=== PATIENT | female | born 1990 | race Caucasian/White ===

== ENCOUNTER 2016-12-08 13:58 | Emergency (ER) | payer OTHER ==
[2016-12-08] MEDS ORDERED: IBUPROFEN 800 MG TABLET PO STA (14:34)
[2016-12-08] MEDS ORDERED: IBUPROFEN 800 MG TABLET PO ONE (14:39)
== END 2016-12-08 14:45 | disposition home or self-care (01) ==
DX: S16.9XXA Unspecified injury of muscle, fascia and tendon at neck level, initial encounter (principal); S29.002A Unspecified injury of muscle and tendon of back wall of thorax, initial encounter; V43.52XA Car driver injured in collision with other type car in traffic accident, initial encounter; Y92.488 Other paved roadways as the place of occurrence of the external cause
CPT/HCPCS: 99283; A9270

== ENCOUNTER 2017-03-18 10:24 | Outpatient (CLI) | payer OTHER | END 2017-03-18 10:25 | disposition home or self-care (01) | DX: L73.2 Hidradenitis suppurativa (principal) ==

== ENCOUNTER 2017-03-24 18:47 | Outpatient (CLI) | payer OTHER ==
--- NOTE | 2017-03-25 11:30 | Ultrasound Report ---
PELVIC ULTRASOUND: 03/24/2017 CLINICAL INDICATION: Pain. TECHNIQUE: Transabdominal pelvic ultrasound performed for global evaluation. Transvaginal pelvic ul trasound performed for detailed evaluation. Real-time scanning performed and static images obtained. FINDINGS: The uterus is anteverted, measuring 5.8 x 3.6 x 2.3 cm. The endometrial echo complex elijah ures 7 mm. No focal myometrial lesion is seen. The right ovary measures 2.9 x 2.8 x 3.1 cm, and rajan ears unremarkable. The left ovary measures 3.0 x 3.3 x 2.9 cm, and demonstrates a follicle. No free fluid is present. IMPRESSION: NORMAL PELVIC ULTRASOUND. JOB #: [id number] EXT JOB #:[id number]
== END 2017-03-24 18:48 | disposition home or self-care (01) ==
LOC: DI 18:47
PROVIDERS: ATTEND Family Medicine
DX: R10.2 Pelvic and perineal pain (principal)
CPT/HCPCS: 76830; 76856

== ENCOUNTER 2017-08-18 14:47 | Outpatient (CLI) | payer OTHER | END 2017-08-18 14:48 | disposition home or self-care (01) | LOC: LAB.WCP 14:47 | PROVIDERS: ATTEND Physician Assistant Medical | DX: Z33.1 Pregnant state, incidental (principal) | CPT/HCPCS: 36415; 84702 ==

== ENCOUNTER 2017-08-25 08:00 | Outpatient (CLI) | payer OTHER | END 2017-08-25 08:01 | LOC: LAB.R 08:00 | PROVIDERS: ATTEND Physician Assistant Medical | DX: B97.89 Other viral agents as the cause of diseases classified elsewhere (principal) | CPT/HCPCS: 87275; 87276 ==

== ENCOUNTER 2017-08-30 20:26 | Outpatient (CLI) | payer OTHER | END 2017-08-30 20:27 | disposition home or self-care (01) | LOC: LAB.WCP 20:26 | PROVIDERS: ATTEND Physician Assistant Medical | DX: O46.91 Antepartum hemorrhage, unspecified, first trimester (principal); Z32.01 Encounter for pregnancy test, result positive | CPT/HCPCS: 36415; 84702 ==

== ENCOUNTER 2017-09-01 11:38 | Outpatient (CLI) | payer OTHER | END 2017-09-01 11:39 | disposition home or self-care (01) | LOC: LAB.WCP 11:38 | PROVIDERS: ATTEND Physician Assistant Medical | DX: Z32.01 Encounter for pregnancy test, result positive (principal); O46.91 Antepartum hemorrhage, unspecified, first trimester | CPT/HCPCS: 36415; 84702; 84703 ==

== ENCOUNTER 2017-09-03 11:30 | Outpatient (CLI) | payer OTHER | END 2017-09-03 11:31 | disposition home or self-care (01) | LOC: LAB 11:30 | PROVIDERS: ATTEND Family Medicine | DX: O46.91 Antepartum hemorrhage, unspecified, first trimester (principal) | CPT/HCPCS: 36415; 84702 ==

== ENCOUNTER 2017-09-05 20:00 | Outpatient (CLI) | payer OTHER ==
--- NOTE | 2017-09-05 21:55 | Ultrasound Preliminary Report ---
Exam: US OB TRANSVAGINAL IMPRESSION: 1. Single viable intrauterine at EGA 6 weeks 3 days with SUHAS 04/28/2018 based on crown-rump length, which is mildly discordant with clinical dates. 2. Assigned dating is SUHAS 04/28/2018 based on current crown-rump length. RADIA The call report notification system was initiated by Dr. Kashmir Bahena at 21:28 hrs on 09/05/17. The above findings were discussed with Dr. Deluna by Dr. Kashmir Bahena at 21:53 hrs on 09/05/17. SITE ID: [id number]
--- NOTE | 2017-09-05 21:57 | Ultrasound Report ---
EXAM: FIRST TRIMESTER OBSTETRIC ULTRASOUND (Less than 11 weeks) EXAM DATE: 09/05/2017 08:15 PM. CLINICAL HISTORY: VAGINAL BLEEDING, FIRST TRIMESTER. LMP: 07/09/2017. COMPARISONS: None. TECHNIQUE: Transabdominal and transvaginal ultrasound examination with static image documentation. CLINICAL DATES: EGA 8 weeks 2 days with SUHAS 04/15/2018 based on LMP. ASSESSMENT: Gestational Sac: Single intrauterine. Mean gestational sac diameter: 33 mm = 8 weeks 3 days. Embryo: CRL (crown-rump length) 4.7 mm = 6 weeks 3 days. Cardiac activity: 124 beats per minute. Yolk sac: 3.2 mm. Amniotic fluid: Not accurately assessed at this gestational age. Early placenta: Not visible at this gestational age. Other: Small perigestational fluid collection with maximum measurement of 11 mm. MATERNAL STRUCTURES: Uterus: Anteverted/Retroverted. Unremarkable. Cervix: Closed. Right Ovary/Adnexa: Unremarkable. The ovary measures 2.3 x 2.0 x 2.9 cm, volume 6.9 cc. Left Ovary/Adnexa: Unremarkable. The ovary measures 2.5 x 1.7 x 1.5 cm, volume 3.4 cc. Free Fluid: Small amount of simple free fluid in the cul-de-sac, a nonspecific finding. Other: None. IMPRESSION: 1. Single viable intrauterine at EGA 6 weeks 3 days with SUHAS 04/28/2018 based on crown-rump length, which is mildly discordant with clinical dates. 2. Assigned dating is SUHAS 04/28/2018 based on current crown-rump length. HAOA The call report notification system was initiated by Dr. Kashmir Bahena at 21:28 hrs on 09/05/17. The above findings were discussed with Dr. Deluna by Dr. Kashmir Bahena at 21:53 hrs on 09/05/17. Referring Provider Line: [phone] SITE ID: [id number]
== END 2017-09-05 20:01 | disposition home or self-care (01) ==
LOC: DI 20:00
PROVIDERS: ATTEND Family Medicine
DX: O46.91 Antepartum hemorrhage, unspecified, first trimester (principal)
CPT/HCPCS: 76817

== ENCOUNTER 2017-09-26 08:00 | Outpatient (CLI) | payer OTHER | END 2017-09-26 08:01 | disposition home or self-care (01) | LOC: LAB.R 08:00 | PROVIDERS: ATTEND Registered Nurse | DX: Z34.81 Encounter for supervision of other normal pregnancy, first trimester (principal) | CPT/HCPCS: 87491; 87591 ==

== ENCOUNTER 2017-09-26 10:30 | Outpatient (CLI) | payer OTHER ==
[2017-09-26 11:13] LABS: BASOPHILS # (AUTO) 0.1 10^3/uL (0.0-0.1); BASOPHILS % (AUTO) 1.2 %; EOSINOPHILS # (AUTO) 0.6 10^3/uL (0.0-0.7); HGB - HEMOGLOBIN 14.4 g/dL (12.0-16.0); LYMPHOCYTES # (AUTO) 1.3 10^3/uL (1.5-3.5); MEAN CORPUSCULAR HGB CONC 35.1 g/dL (32.0-36.0); MEAN CORPUSCULAR VOLUME 88.3 fL (81.0-99.0); MEAN PLATELET VOLUME 7.8 fL (7.9-10.8); MONOCYTES # (AUTO) 0.4 10^3/uL (0.0-1.0); MONOCYTES % (AUTO) 6.6 %; NEUTROPHILS # (AUTO) 4.1 10^3/uL (1.5-6.6); NEUTROPHILS % (AUTO) 63.2 %; RED BLOOD COUNT 4.65 10^6/uL (4.20-5.40); RED CELL DISTRIBUTION WIDTH 13.2 % (12.0-15.0); UNCORRECTED WHITE BLOOD COUNT 6.5 x10^3/uL; WHITE BLOOD COUNT 6.5 x10^3/uL (4.8-10.8)
[2017-09-26 11:32] LABS: BILIRUBIN,URINE NEGATIVE (NEGATIVE); PH,URINE 5.5 PH (5.0-7.5)
[2017-09-26 11:40] LABS: WBC,URINE 0-3 /HPF (0-5)
[2017-09-28 17:06] LABS: TEST RESULT REPORT
== END 2017-09-26 10:31 | disposition home or self-care (01) ==
LOC: LAB 10:30
PROVIDERS: ATTEND Registered Nurse
DX: Z34.81 Encounter for supervision of other normal pregnancy, first trimester (principal)
CPT/HCPCS: 36415; 81001; 81599; 85025; 86762; 86780; 86803; 86850; 86900; 86901; 87340; 87389; 87491; 87591

== ENCOUNTER 2017-12-27 07:48 | Outpatient (CLI) | payer OTHER ==
--- NOTE | 2017-12-29 08:46 | Ultrasound Report ---
OB ULTRASOUND: 12/27/2017 CLINICAL INDICATIONS: anatomy. TECHNIQUE: Real-time scanning was performed with veterans service representative static images obtained. LAST MENSTRUAL PERIOD 07/09/2017 CLINICAL AGE 22 weeks 4 days US AGE 24 weeks 0 days EFW HADLOCK 634 grams EFW% HADLOCK -- HEART RATE 148 bpm EDC 04/28/2018 US EDC 04/18/2018 BPD HADLOCK 23 weeks 6 days; Mean mm 58 HC HADLOCK 24 weeks 4 days; Mean mm 226 AC HADLOCK 23 weeks 4 days; Mean mm 188 FL HADLOCK 24 weeks 0 days; Mean mm 43 PRESENTATION cephalic PLACENTAL LOCATION anterior CERVICAL LENGTH 4.0 cm AMNIOTIC FLUID subjectively normal; MVP 5.1 cm FINDINGS There is a single viable intrauterine gestation, in cephalic presentation. heart rate is 148 BPM. The placenta is anterior, without evidence of previa. Amniotic fluid volume is subjectively normal, with a deepest pocket of 5.1 cm. By size, the fetus measures 24 weeks 0 days (22 weeks 4 days by initial sonogram). The following anatomic structures were visualized and appear normal: The intracranial contents, including the ventricles and posterior fossa; the lips and orbits; the spine; the heart, including 4 chamber view and outflow tracts, and diaphragm; the abdominal contents, including the stomach, the bilateral kidneys, and urinary bladder, as well as a normal 3 vessel cord insertion; 4 limbs. Incidental note is made of mild left renal pelviectasis, measuring 3 mm. No free fluid or adnexal lesion is appreciated. IMPRESSION: SINGLE VIABLE INTRAUTERINE GESTATION, WITH EXPECTED GROWTH FROM PREVIOUS SONOGRAM. MILD LEFT RENAL PELVIECTASIS. OTHERWISE, NORMAL ANATOMIC SURVEY. TD: 12/27/2017 17:26 MTDD
== END 2017-12-27 07:49 | disposition home or self-care (01) ==
LOC: DI 07:48
PROVIDERS: ATTEND Registered Nurse
DX: Z34.82 Encounter for supervision of other normal pregnancy, second trimester (principal)
CPT/HCPCS: 76811

== ENCOUNTER 2018-02-10 10:38 | Outpatient (CLI) | payer OTHER ==
[2018-02-10 11:50] LABS: HGB - HEMOGLOBIN 13.6 g/dL (12.0-16.0); MEAN CORPUSCULAR HGB CONC 35.5 g/dL (32.0-36.0); MEAN PLATELET VOLUME 7.3 fL (7.9-10.8); RED BLOOD COUNT 4.25 10^6/uL (4.20-5.40); RED CELL DISTRIBUTION WIDTH 12.3 % (12.0-15.0); WHITE BLOOD COUNT 8.2 x10^3/uL (4.8-10.8)
== END 2018-02-10 10:39 | disposition home or self-care (01) ==
LOC: LAB 10:38
PROVIDERS: ATTEND Registered Nurse
DX: Z34.82 Encounter for supervision of other normal pregnancy, second trimester (principal)
CPT/HCPCS: 36415; 82950; 86850

== ENCOUNTER 2018-03-27 08:00 | Outpatient (CLI) | payer OTHER | END 2018-03-27 23:59 | LOC: LAB.R 08:00 | PROVIDERS: ATTEND Nurse Practitioner Obstetrics & Gynecology | DX: Z36.85 Encounter for antenatal screening for Streptococcus B (principal) | CPT/HCPCS: 87081 ==

== ENCOUNTER 2018-03-28 20:41 | Outpatient (CLI) | payer OTHER ==
--- NOTE | 2018-03-31 15:45 | Ultrasound Report ---
OB FOLLOWUP: 03/28/2018 CLINICAL INDICATION: Size/date discrepancy. TECHNIQUE: Real-time scanning was performed with players club representative static images obtained. LAST MENSTRUAL PERIOD: 07/22/2017 Clinical Age: 35 weeks 5 days US Age: 35 weeks 3 days EFW Hadlock: 2547 g EFW% Hadlock: 29% Heart Rate: 140 bpm EDC: 04/28/2018 US EDC: 04/30/2018 BPD Hadlock: 37 weeks 6 days; Mean mm 93.2 HC Hadlock: 34 weeks 4 days; Mean mm 309.2 AC Hadlock: 34 weeks 5 days; Mean mm 307.2 FL Hadlock: 34 weeks 3 days; Mean mm 67.0 Presentation: cephalic Placental Location: anterior Cervical Length: --- Amniotic Fluid: 18.4 cm FINDINGS: There is a single viable intrauterine gestation, in cephalic presentation. heart rate is 140 BPM. The placenta is anterior, without evidence of previa. Amniotic fluid volume is normal, with an MEGHNA of 18.4. By size, the fetus measures 35 weeks 2 days (35 weeks 5 days by first trimester dating ultrasound of 09/05/2017). Estimated weight by Hadlock method is 2547 grams, 29th percentile. No free fluid or adnexal lesion is appreciated. IMPRESSION: SINGLE VIABLE INTRAUTERINE GESTATION, WITH EXPECTED GROWTH FROM FIRST TRIMESTER DATING ULTRASOUND. ESTIMATED WEIGHT OF 2547 GRAMS. MTDD
== END 2018-03-28 20:42 | disposition home or self-care (01) ==
LOC: DI 20:41
PROVIDERS: ATTEND Registered Nurse
DX: O26.843 Uterine size-date discrepancy, third trimester (principal); Z36.85 Encounter for antenatal screening for Streptococcus B
CPT/HCPCS: 76816; 87081

== ENCOUNTER 2018-04-07 10:45 | Outpatient (CLI) | payer OTHER ==
[2018-04-07 10:57] LABS: BASOPHILS # (AUTO) 0.1 10^3/uL (0.0-0.1); EOSINOPHILS # (AUTO) 0.2 10^3/uL (0.0-0.7); HGB - HEMOGLOBIN 13.6 g/dL (12.0-16.0); LYMPHOCYTES # (AUTO) 1.3 10^3/uL (1.5-3.5); LYMPHOCYTES % (AUTO) 16.8 %; MEAN CORPUSCULAR HEMOGLOBIN 30.4 pg (27.0-31.0); MEAN CORPUSCULAR HGB CONC 34.8 g/dL (32.0-36.0); MEAN CORPUSCULAR VOLUME 87.5 fL (81.0-99.0); MEAN PLATELET VOLUME 7.1 fL (7.9-10.8); MONOCYTES # (AUTO) 0.6 10^3/uL (0.0-1.0); MONOCYTES % (AUTO) 7.6 %; NEUTROPHILS # (AUTO) 5.4 10^3/uL (1.5-6.6); NEUTROPHILS % (AUTO) 71.6 %; PLT - PLATELET COUNT 259 10^3/uL (130-450); RED BLOOD COUNT 4.45 10^6/uL (4.20-5.40); RED CELL DISTRIBUTION WIDTH 12.2 % (12.0-15.0); WHITE BLOOD COUNT 7.5 x10^3/uL (4.8-10.8)
[2018-04-07 11:11] LABS: ALBUMIN 3.3 g/dL (3.2-5.5); ALBUMIN/GLOBULIN RATIO 0.8 (1.0-2.2); BILIRUBIN,TOTAL 0.5 mg/dL (0.2-1.0); CALCIUM 9.2 mg/dL (8.5-10.3); CREATININE 0.5 mg/dL (0.4-1.0); TOTAL PROTEIN 7.2 g/dL (6.7-8.2); URIC ACID 4.5 mg/dL (2.6-7.2)
[2018-04-07 12:00] LABS: CREATININE,URINE 219.2 mg/dL; PROTEIN/CREATININE RATIO,URINE 0.1 (<=0.2)
== END 2018-04-07 10:46 | disposition home or self-care (01) ==
LOC: LAB 10:45
PROVIDERS: ATTEND Nurse Practitioner Obstetrics & Gynecology
DX: Z36.9 Encounter for antenatal screening, unspecified (principal)
CPT/HCPCS: 36415; 80053; 82570; 84156; 84550; 85025

== ENCOUNTER 2018-04-07 11:01 | Outpatient (CLI) | payer OTHER ==
[2018-04-07 11:53] VITALS: BP 120/78
== END 2018-04-07 11:55 | disposition home or self-care (01) ==
LOC: WFO 11:01 → FBP 11:02 → WFO 11:55
PROVIDERS: ATTEND Nurse Practitioner Obstetrics & Gynecology
DX: O13.3 Gestational [pregnancy-induced] hypertension without significant proteinuria, third trimester (principal); Z3A.37 37 weeks gestation of pregnancy; Z36.9 Encounter for antenatal screening, unspecified
CPT/HCPCS: 36415; 59025; 80053; 82570; 84156; 84550; 85025; 85027

== ENCOUNTER 2018-04-09 10:52 | Outpatient (CLI) | payer OTHER ==
[2018-04-09 11:19] LABS: COLLECTION TIME,URINE 1440 min; TOTAL VOLUME,URINE 900 mL
[2018-04-09 11:20] LABS: CREATININE,URINE 117.9 mg/dL
[2018-04-09 11:31] VITALS: BP 122/88
--- NOTE | 2018-04-10 14:29 | Labor Flowsheet ---
Labor Flowsheet Datetime Report Generated by CPN: 04/10/2018 14:28 Datetime: 04/09/2018 15:35 Pulse: 87 SpO2 (%): 97 Datetime: 04/09/2018 13:32 VITAL SIGNS NBP Sys/Kassidy/Mean (mmHg): 114 : 79 : 90
== END 2018-04-09 11:33 | disposition home or self-care (01) ==
LOC: LAB 10:52 → FBP 10:58 → LAB 11:33
PROVIDERS: ATTEND Registered Nurse
DX: Z36.9 Encounter for antenatal screening, unspecified (principal); O13.3 Gestational [pregnancy-induced] hypertension without significant proteinuria, third trimester; Z3A.37 37 weeks gestation of pregnancy
CPT/HCPCS: 82575

== ENCOUNTER 2018-04-28 14:05 | Outpatient (CLI) | payer OTHER | END 2018-04-28 14:06 | disposition home or self-care (01) | LOC: LAB.R 14:05 | PROVIDERS: ATTEND Nurse Practitioner Obstetrics & Gynecology | DX: R82.99 Other abnormal findings in urine (principal) | CPT/HCPCS: 87086 ==

== ENCOUNTER 2018-04-28 14:07 | Outpatient (CLI) | payer OTHER ==
[2018-04-28 14:18] VITALS: BP 129/91
== END 2018-04-28 17:50 | disposition home or self-care (01) ==
LOC: WFO 14:07 → FBP 14:08 → WFO 17:50
PROVIDERS: ATTEND Nurse Practitioner Obstetrics & Gynecology
DX: O36.8330 Maternal care for abnormalities of the fetal heart rate or rhythm, third trimester, not applicable or unspecified (principal); O23.43 Unspecified infection of urinary tract in pregnancy, third trimester; Z3A.39 39 weeks gestation of pregnancy
CPT/HCPCS: 59025; 87086

== ENCOUNTER 2018-05-01 21:31 | Inpatient (IN) | payer OTHER ==
[2018-05-01] MEDS ORDERED: SODIUM CHLORIDE FLUSH 0.9% 10 ML SYRINGE IVP PRN (22:27)
[2018-05-01 23:42] LABS: BASOPHILS # (AUTO) 0.1 10^3/uL (0.0-0.1); BASOPHILS % (AUTO) 0.7 %; EOSINOPHILS # (AUTO) 0.2 10^3/uL (0.0-0.7); EOSINOPHILS % (AUTO) 2.2 %; LYMPHOCYTES # (AUTO) 1.5 10^3/uL (1.5-3.5); MEAN CORPUSCULAR HEMOGLOBIN 30.2 pg (27.0-31.0); MEAN CORPUSCULAR HGB CONC 34.1 g/dL (32.0-36.0); MEAN CORPUSCULAR VOLUME 88.7 fL (81.0-99.0); MEAN PLATELET VOLUME 8.5 fL (7.9-10.8); MONOCYTES # (AUTO) 0.5 10^3/uL (0.0-1.0); MONOCYTES % (AUTO) 7.3 %; NEUTROPHILS # (AUTO) 5.1 10^3/uL (1.5-6.6); NEUTROPHILS % (AUTO) 69.8 %; PLT - PLATELET COUNT 200 10^3/uL (130-450); RED BLOOD COUNT 3.98 10^6/uL (4.20-5.40); RED CELL DISTRIBUTION WIDTH 12.6 % (12.0-15.0); WHITE BLOOD COUNT 7.3 x10^3/uL (4.8-10.8)
[2018-05-02] MEDS ORDERED: fentaNYL 100 MCG/2 ML VIAL IVP PRN (00:18)
[2018-05-02] MEDS ORDERED: ONDANSETRON 4 MG/2 ML VIAL IVP PRN ×2 (00:18→18:35)
[2018-05-02] MEDS ORDERED: OXYTOCIN/SODIUM CHLORIDE 250 ML IV ONE ×2 (00:19→18:35)
--- NOTE | 2018-05-02 00:23 | HISTORY & PHYSICAL EXAMINATION ---
Admit History - Instructions [place]necock/Slash: -Left hand click circles element as positive or present. -Right hand click slashes element as negative or not present. - Visit Reason Visit Reason: Contractions (x5 hours, strong) - : 1 Parity: 0 Premature: 0 Ectopic: 0 : 0 Care: positive: [facility] (initiated @ 9weeks' gestation x12 visits) Risk/History: positive: None Complications This : positive: None Smoking Status: Never smoker - Mother's Labs Mother's Blood Type: positive: A Mother's RH: positive: Negative (rhogam given 02/24/2018) GBS: positive: Group B Step Negative Rubella Status: positive: Equivocal Meds/Allgy - Home Medications Home Medications: Ambulatory Orders Medication Instructions Recorded Confirmed Hycosamine 1 tab PO DAILY 12/08/16 Ibuprofen [Motrin] 800 mg PO Q8H PRN #30 tablet 12/08/16 Omeprazole 10 mg PO DAILY 12/08/16 12/08/16 - Allergies Allergies/Adverse Reactions: Allergies Allergy/AdvReac Type Severity Reaction Status Date / Time bupropion HCl * Allergy Unknown Verified 12/08/16 14:11 [From Wellbutrin] Review of Systems - Constitutional Constitutional: reports: Fatigue. denies: Fever, Chills - Eyes Eyes: denies: Blurred vision, Spots in vision, Vision loss, Dipolpia - Cardiovascular Cariovascular: reports: Edema (mild b/l feet). denies: Irregular heart rate, Palpitations, Chest pain - Respiratory Respiratory: reports: SOB with exertion. denies: Cough, Sputum production, Wheezing, SOB at rest - Gastrointestinal Gastrointestinal: reports: Abdominal pain (contractions). denies: Constipation , Diarrhea, Change in bowel habits - Genitourinary Genitourinary: reports: Frequency, Urgency. denies: Dysuria - Musculoskeletal Musculoskeletal: reports: Back pain. denies: Muscle pain - Integumentary Integumentary: denies: Rash, Pruritis, Lesions - Neurological Neurological: denies: General weakness, Focal weakness, Headache, Dizziness - Psychiatric Psychiatric: reports: Anxiety (stable on sertraline 100mg po). denies: Depression, Suicidal - All Other Systems All Other Systems: reports: Other (+progressively painful uterine contractions, no LOF/VB, +FM) Physical - Abdominal Exam Vital Signs: Temp Pulse Resp BP Pulse Ox 36.7 C 92 18 123/87 H 99 05/01/18 21:48 05/01/18 21:48 05/01/18 21:48 05/01/18 21:48 05/01/18 21:48 Contraction Frequency (min/apart): 4-5 Contraction Intensity: positive: Mild to moderate Uterine Resting Tone: positive: Soft - Monitoring Heart Rate Baseline: 150 Strip Review: positive: Category I - Presentation Presentation: positive: Vertex - Vaginal Exam Membranes: positive: Membranes intact Dilation (in cm): 4 Effacement (%): 90 Station: positive: 0 Cervical Position: positive: Anterior - Speculum Exam Speculum Exam Performed: positive: No Findings: negative: Gross leak - Other Notes Labor Progress Note/Additional Text: Roger presents w/ complaint of 5 hours of progressively intense uterine contractions at home, requesting evaluation & complaining of too much pain to rest at home. If she is not actively laboring, she requests therapeutic rest followed by IOL for term . Her has been complicated by Rh negative status, for which she received Rhogam @ 28 weeks' gestation, anxiety, which has been stable on 100mg po sertraline & UTI, which was recently tx'ed w/ macrobid. She is accompanied today by Edgar & her aunt, who are involved & supportive. 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; to Edgar, denies DV, hx MJ use, denies other drugs, ETOH/tobacco; expecting male , naming him Yefri, declines circ, undecided re: anesthesia PE: GEN: AAOX3, NAD [place] GRAVID FEMALE HEENT: GROSSLY NORMOCEPHALIC, ATRAUMATIC RESP: LUNGS B/L CTA T/O CARDIAC: RRR NLS1S2, NO MURMUR GI: ABD NT, GRAVID, MILD PALPABLE CONTRACTIONS, ERRATIC, LIE LONGITUDINAL , PRESENTATION CEPHALIC, EFW 8.5-9# : NO LESION, NO EXUDATE, SVE 4/90/0 2 HOURS S/P ASSESSMENT BY RN, BBOW, SOFT , MIDPOSITION OB: EFM BL 145BPM, +ACCELS, NO DECELS, MOD DOYLE; TOCO: IRREG UCS Q 5-6 MIN X60 SECONDS MS: FROM T/O, NO DEFORMITY, MILD B/L PEDAL EDEMA SKIN: WARM, WELL-PERFUSED, C/D/I, NO LESION NEURO: NO FOCAL DEFICIT PSYCH: ANXIOUS BUT OTHERWISE PLEASANTLY CONVERSANT Plan for Labor - Plan For Labor I expect patient to be DC'd or transferred within 96 hours.: Yes Plan for Labor: 1. ADMIT TO INPATIENT FOR MANAGEMENT OF PRODROMAL LABOR W/ UTERINE CONTRACTIONS & MINIMAL CERVICAL CHANGE X5 DAYS 2. REVIEWED OPTIONS FOR MANAGEMENT @ THIS TIME; PT ELECTS HYDROXYZINE 50MG IM X1 FOR ATTEMPT @ REST OVERNIGHT & RE-ASSESSMENT IN AM W/ IOL FOR PROTRACTED LATENT PHASE LABOR 3. REVIEWED PAIN MANAGEMENT OPTIONS 4. PLAN PITOCIN IN AM IF NO FURTHER CERVICAL CHANGE
[2018-05-02] MEDS ORDERED: SERTRALINE 50 MG TABLET PO SCH ×3 (01:00→23:00)
[2018-05-02] MEDS: SODIUM CHLORIDE FLUSH 0.9% 10 ML SYRINGE IVP SCH ×2 (04:23→09:00)
[2018-05-02] MEDS: LACTATED RINGERS 1,000 ML IV SCH ×4 (05:15→20:04)
[2018-05-02] MEDS ORDERED: fent/BUPIV 2 MCG/0.125% 250 ML EP ONE (06:15)
[2018-05-02] MEDS ORDERED: cephALEXin 250 MG CAPSULE PO SCH (09:00)
--- NOTE | 2018-05-02 09:21 | PROVIDER PROGRESS NOTE ---
Labor Progress Note - Uterine Monitoring Uterine Monitoring Mode: positive: IUPC (placed to assess contraction activity relative to fluctuations in FHTs) Contraction Intensity: positive: Other (baseline 20mmHg, peak 60mmHg, contractions occurring q 5 min, MVU presently 120) Uterine Resting Tone: positive: Soft - Monitoring Monitor Mode: positive: External ultrasound Heart Rate Baseline: 140 Heart Rate Variability: positive: Moderate (6-25 bmp) Accelerations: positive: Present, 15x15 Decelerations: positive: Variable (to meredith in 110s w/ spontaneous return to baseline <60 seconds) Strip Review: positive: Category II - Vaginal Exam Dilation (in cm): 6 Effacement (%): 100 Station: 0 (apparent SROM @ some time, no ongoing LOF, but hair easily palpable) Cervical Position: Anterior - Labor Progress Note Labor Progress Note/Additional Text: S: Roger is comfortable w/ her epidural in place. She has been able to rest some & is hoping to rest some more O: AAOx3, NAD WA female VSS EFM: BL 140bpm, + accels, occ, non-repetitive variable decelerations to meredith in 100s w/ spontaneous return to baseline <60 seconds, moderate variability IUPC placed w/ ease to assess character of FHT decelerations relative to uterine contractions secondary to difficulty tracing w/ TOCO; baseline 20mmHg, peak 60mmHg, UCs occurring erratically q 5-6 minutes, lasting 60-80 seconds, MVU presently 120 SVE: 6/90/0 A: 28 y/o @ 40w2d by early first trimester US GBS negative, SROM for CAF Slow cervical change, now actively laboring w/ dysfunctional labor pattern, long prodromal latent phase Adequate pain control w/ epidural anesthesia FHTs cat II w/o evidence of hypoxemia P: 1. Begin Pitocin infusion & titrate per protocol to maintain adequate contractions by IUPC 2. Reassess cervical status x2 hours s/p establishment of adequate contraction pattern per MVU 3. Reviewed dysfunctional labor & anticipatory guidance for transition/2nd stage labor 4. Encouraged maternal rest 5. Reviewed plan of care w/ pt, pt's aunt & RN @ bedside; all in agreement, without concerns.
[2018-05-02] MEDS ORDERED: OXYTOCIN/SODIUM CHLORIDE 500 ML IV SCH (10:00)
--- NOTE | 2018-05-02 15:44 | PROVIDER PROGRESS NOTE ---
Subjective - Prog Note Date Prog Note Date: 05/02/18 Prog Note Time: 10:45 - Subjective Pt reports feeling: No change Objective - Vital Signs/Intake & Output Intake & Output: Intake & Output 04/29/18 04/30/18 05/01/18 05/02/18 23:59 23:59 23:59 23:59 Intake Total 2495 Output Total 800 Balance 1695 - Lab Results Fish Bones: 05/01/18 23:08 Other Labs: Lab Results x24hrs 05/01/18 Range/Units 23:08 WBC 7.3 (4.8-10.8) x10^3/uL RBC 3.98 L (4.20-5.40) 10^6/uL Hgb 12.0 (12.0-16.0) g/dL Hct 35.3 L (37.0-47.0) % MCV 88.7 (81.0-99.0) fL MCH 30.2 (27.0-31.0) pg MCHC 34.1 (32.0-36.0) g/dL RDW 12.6 (12.0-15.0) % Plt Count 200 (130-450) 10^3/uL MPV 8.5 (7.9-10.8) fL Neut # (Auto) 5.1 (1.5-6.6) 10^3/uL Lymph # (Auto) 1.5 (1.5-3.5) 10^3/uL Teller # (Auto) 0.5 (0.0-1.0) 10^3/uL Eos # (Auto) 0.2 (0.0-0.7) 10^3/uL Baso # (Auto) 0.1 (0.0-0.1) 10^3/uL Absolute Nucleated RBC 0.01 x10^3/uL Nucleated RBC % 0.1 /100WBC Assessment/Plan - Problem List (1) Active labor at term Impression: Labor Progress Note - Uterine Monitoring Uterine Monitoring Mode: positive: IUPC Contraction Frequency (min/apart): 3-5 minutes baseline 20mmHg, peak 70mmHg, MVU 100 Contraction Intensity: positive: Moderate to strong Uterine Resting Tone: positive: Soft - Monitoring Monitor Mode: positive: External ultrasound, Spiral electrode (FSE placed w/o incident) Heart Rate Baseline: 140 Heart Rate Variability: positive: Moderate (6-25 bmp) Accelerations: positive: Present, 15x15 Decelerations: positive: Early (discernible once FSE placed), Prolonged (> 2x10 min) (prolonged deceleration x1 to meredith in 80s w/ return to baseline w/ maternal position change to H&K, FSE placed w/o incident to ensure accuracy of FHR tracing) Strip Review: positive: Category II - Vaginal Exam Dilation (in cm): 7-8 Effacement (%): 100 Station: 0 Cervical Position: Anterior - Labor Progress Note Labor Progress Note/Additional Text: Called to see patient secondary to prolonged deceleration x1 to meredith in 80s w/ return to baseline over a period of 4.5 minutes w/ maternal position change from R lateral to L lateral & finally to H&K, IV fluid bolus infusing, O2 administered via non-rebreather face mask. FHTs 130bpm upon my arrival, FSE applied w/ ease & pt assisted in remaining in H&K positioning, SVE 8/100/0, despite inadequate contraction pattern per MVU, Pitocin infused only momentarily @ 2mU/min, discontinued w/ deceleration. Will continue to carefully observe FHTs & initiate intrauterine resuscitative measures as clinically indicated, resume Pitocin infusion & titrate per IUPC to achieve & maintain adequate labor pattern once FHTs cat I x30 minutes consistently. Reviewed implications of prolonged deceleration at this stage in labor & reviewed increased risk for intolerance of labor. Reviewed plan of care w / pt, pt's family & RN @ bedside; all in agreement, without concerns.
[2018-05-02] MEDS ORDERED: TERBUTALINE 1 MG/ML VIAL SUBQ ONE (16:05)
[2018-05-02] MEDS ORDERED: TERBUTALINE 1 MG/ML VIAL SUBQ SCH (16:10)
[2018-05-02] MEDS ORDERED: CITRIC ACID/SODIUM CITRATE 15 ML UDC PO ONE (16:21)
[2018-05-02] MEDS ORDERED: CITRIC ACID/SODIUM CITRATE 15 ML UDC PO SCH (16:27)
[2018-05-02] MEDS ORDERED: fentaNYL 100 MCG/2 ML VIAL ONE (16:28)
[2018-05-02] MEDS ORDERED: AZITHROMYCIN INJ 500 MG in SODIUM CHLORIDE 0.9% 250 ML IV SCH (16:30)
--- NOTE | 2018-05-02 16:33 | PROVIDER PROGRESS NOTE ---
Subjective - Prog Note Date Prog Note Date: 05/02/18 Prog Note Time: 16:27 - Subjective Subjective: FINANCIAL SALES CONSULTANT TANDEM MILL OPERATOR: 28 yo 40 2/7 weeks in labor with Category 2 tracing during long stretches of time, non-augmentable labor for same. Cx exam by me 7/C/-2/VTX. IV terbutaline/02/position changes required to treat prolonged decel while I was in room with patient recommending . Patient agrees with recommendation. Counseling/Consent form signed. Patient counseled about common surgical risks (Incisional & Uterine infection, bleeding and transfusion, injury to bowel/bladder/baby, need for additional surgery, DVT/PE, brain damage/ , or PA). OR crew, ANS and peds notified. All questions answered. Objective - Vital Signs/Intake & Output Intake & Output: Intake & Output 04/29/18 04/30/18 05/01/18 05/02/18 23:59 23:59 23:59 23:59 Intake Total 2495 Output Total 975 Balance 1520 - Lab Results Fish Bones: 05/01/18 23:08 Other Labs: Lab Results x24hrs 05/01/18 Range/Units 23:08 WBC 7.3 (4.8-10.8) x10^3/uL RBC 3.98 L (4.20-5.40) 10^6/uL Hgb 12.0 (12.0-16.0) g/dL Hct 35.3 L (37.0-47.0) % MCV 88.7 (81.0-99.0) fL MCH 30.2 (27.0-31.0) pg MCHC 34.1 (32.0-36.0) g/dL RDW 12.6 (12.0-15.0) % Plt Count 200 (130-450) 10^3/uL MPV 8.5 (7.9-10.8) fL Neut # (Auto) 5.1 (1.5-6.6) 10^3/uL Lymph # (Auto) 1.5 (1.5-3.5) 10^3/uL [place] # (Auto) 0.5 (0.0-1.0) 10^3/uL Eos # (Auto) 0.2 (0.0-0.7) 10^3/uL Baso # (Auto) 0.1 (0.0-0.1) 10^3/uL Absolute Nucleated RBC 0.01 x10^3/uL Nucleated RBC % 0.1 /100WBC
[2018-05-02] MEDS ORDERED: LACTATED RINGERS 1,000 ML IV ONE ×3 (16:38→18:43)
[2018-05-02] MEDS ORDERED: ONDANSETRON 4 MG/2 ML VIAL IVP ONE (18:24)
[2018-05-02] MEDS ORDERED: BUPIVACAINE 0.5% PF 10 ML VIAL IM ONE (18:24)
[2018-05-02] MEDS ORDERED: LIDOCAINE-PF 2% 10 ML AMP SUBQ ONE (18:24)
[2018-05-02] MEDS ORDERED: KETAMINE 500 MG/10 ML VIAL IVP ONE (18:24)
[2018-05-02] MEDS ORDERED: PROPOFOL 200 MG/20 ML VIAL IVP ONE (18:24)
[2018-05-02] MEDS ORDERED: KETOROLAC 30 MG/ML VIAL IVP ONE (18:24)
[2018-05-02] MEDS ORDERED: HYDROCORTISONE/PRAMOXINE 10 GM PR PRN (18:35)
[2018-05-02] MEDS ORDERED: WITCH HAZEL/GLYCERIN 1 EACH MED..PAD TOP PRN (18:35)
[2018-05-02] MEDS ORDERED: METHYLERGONOVINE 0.2 MG/ML AMP IM PRN (18:35)
[2018-05-02] MEDS ORDERED: SODIUM CHLORIDE FLUSH 0.9% 10 ML SYRINGE IVP PRN (18:35)
[2018-05-02] MEDS ORDERED: diphenhydrAMINE 25 MG CAPSULE PO PRN (18:35)
--- NOTE | 2018-05-02 18:53 | PROCEDURE REPORT ---
Hospitalist Procedure Note - Procedure Note Procedure Note: POST-OPERATIVE NOTE: PRE-OP DIAGNOSIS: 40 WEEKS GESTATION, NON-REASSURING HEART RATE TRACING POST-OP DIAGNOSIS: SAME PRE-OP DX SURGERY: LUST SURGEON: FREDDY APARTMENT MANAGER: ALETHA MILES CHEF HEAD: PEACE KEARNEY ANS: EPIDURAL FINDINGS: MODERATE MECONIUM NOTED AT DELIVERY, NORMAL CORD AND PLACENTA AND ADNEXA, NO PELVIC ADHESIONS, DELIVERY PRODUCTION OF VIABLE MALE WITH 8/9 DELIVERED AT 1721 HOURS. THREE CM MIDLINE VAGINAL EXTENSION OF LOW VERTICAL UTERINE INCISION. SPECIMEN: CORD GASES PERIOPERATIVE ANTIBIOTICS: ZITHROMAX 500 MG ANCEF 2 GM FLUIDS (ML) LR 700 EBL 800 UO 200 DRAINS: ODOM COMPLICATIONS: NONE CONDITION STABLE
[2018-05-02] MEDS ORDERED: MEASLES,MUMPS & RUBELLA VACC 0.5 ML VIAL SUBQ ONE (19:45)
[2018-05-02] MEDS ORDERED: TETANUS/DIPHTHERIA/PERTUSSIS 0.5 ML SYRINGE IM ONE (19:45)
[2018-05-02] MEDS: oxyCOD/ACETAMIN 5 MG/325 MG TABLET PO PRN (20:38)
--- NOTE | 2018-05-02 22:01 | OPERATIVE REPORT ---
DATE OF SERVICE: 05/02/2018 Physician: Korey Martin DO PREOPERATIVE DIAGNOSIS: 40 weeks' gestation, nonreassuring heart rate tracing. POSTOPERATIVE DIAGNOSIS: 40 weeks' gestation, nonreassuring heart rate tracing. NAME OF PROCEDURE: Low vertical section. SURGEON: Korey Martin DO CRYOLITE RECOVERY OPERATOR: Lashonda Cabrales CNM SALESPERSON NEW CARS: Ninoska Bowens CRNA ANESTHESIA: Epidural. INDICATIONS FOR OPERATION: A 28-year-old female, 1, para 0 at 40 weeks gestation in active labor at 7 cm dilation with nonreassuring heart rate tracing. INTRAOPERATIVE FINDINGS: Moderate meconium was noted upon entry into the uterine cavity, there was a normal umbilical cord and placenta and adnexa noted at delivery. There was no pelvic adhesive disease. The delivery was productive of a viable male with Apgars of 8 and 9, that delivered at 1721 hours. There was a 3 cm midline vaginal extension of her low vertical uterine incision that was repaired intraoperatively without difficulty. SPECIMENS SUBMITTED: Cord gases. PERIOPERATIVE ANTIBIOTICS: Zithromax 500 mg and Ancef 2 grams. INTRAOPERATIVE FLUIDS: Lactated Ringer's 700 mL ESTIMATED BLOOD LOSS: 800 mL URINE OUTPUT: 200 mL DRAIN: A Archibald catheter. COMPLICATIONS: None. CONDITION: Stable. DESCRIPTION OF PROCEDURE: The patient was thoroughly counseled and consented prior to surgery. She was taken to the operating room where her epidural catheter was dosed to a surgical level. She was prepped and draped in routine fashion after preoperative timeout was performed according to hospital policy and adequate anesthetic level was confirmed. A Pfannenstiel skin incision was made. Sharp dissection was carried down to the level of the fascia, which was nicked on both sides of the midline. The fascial incision was extended laterally and upward sharply. The peritoneal cavity was entered bluntly. A bladder blade inserted. A bladder flap created. The decision to perform a low vertical incision was due to the fact that the head was deep in the pelvis. The was felt to be of large size and I was having difficulty keeping the head above the level of the bladder blade, so for purposes of exposure a low vertical incision was made, which was started with a scalpel and extended upwards and downwards sharply with bandage scissors. The head was brought out through the uterine incision without difficulty. The umbilical cord was clamped x2, cut between the clamps and the infant was handed to the axle turner. The patient had already received her Ancef and Zithromax preoperatively. A segment of umbilical cord was obtained for cord gases. IV Pitocin was started. The placenta delivered spontaneously. The uterus was exteriorized and wrapped with a moist laparotomy sponge. Valenzuela clamps were placed along the uterine incision for hemostasis. The vaginal extension of the uterine incision was closed, as well as the remainder of the incision with a running 1 chromic suture x2. A third layer of 1 chromic was placed along the low vertical portion of the incision above the level of the vaginal extension. The first layer was a running locking layer. The subsequent layers were just running 1 chromic suture. Good hemostasis was noted. The anterior and posterior cul-de-sacs were irrigated, suctioned and noted to be dry. The uterine incision was inspected and noted to be dry. Peritoneal edges and muscle bellies were dry. The uterus had already been reinserted into the abdomen and pelvis. The fascia was closed with a running 1 Vicryl. The subcutaneous fat irrigated, suctioned and noted to be dry. The skin was reapproximated with a running subcuticular suture of 3-0 Monocryl, followed by Steri-Strips and a sterile dressing. All sponge, needle and instrument counts were correct. The patient recovered from anesthesia without complication and transferred back to the recovery room in good condition. TD: 05/02/2018 19:14
[2018-05-02] MEDS: SERTRALINE 50 MG TABLET PO SCH (23:36)
[2018-05-03] MEDS: KETOROLAC 30 MG/ML VIAL IV SCH ×4 (00:52→12:45)
[2018-05-03] MEDS: oxyCOD/ACETAMIN 5 MG/325 MG TABLET PO PRN ×6 (00:53→21:11)
[2018-05-03] MEDS: LACTATED RINGERS 1,000 ML IV SCH ×2 (05:19→16:49)
[2018-05-03 06:35] LABS: BASOPHILS % (AUTO) 0.5 %; EOSINOPHILS # (AUTO) 0.1 10^3/uL (0.0-0.7); EOSINOPHILS % (AUTO) 1.4 %; LYMPHOCYTES # (AUTO) 1.2 10^3/uL (1.5-3.5); LYMPHOCYTES % (AUTO) 16.4 %; MEAN CORPUSCULAR HEMOGLOBIN 30.3 pg (27.0-31.0); MEAN CORPUSCULAR HGB CONC 34.1 g/dL (32.0-36.0); MEAN CORPUSCULAR VOLUME 88.9 fL (81.0-99.0); MEAN PLATELET VOLUME 7.7 fL (7.9-10.8); MONOCYTES # (AUTO) 0.5 10^3/uL (0.0-1.0); MONOCYTES % (AUTO) 7.2 %; NEUTROPHILS # (AUTO) 5.3 10^3/uL (1.5-6.6); NEUTROPHILS % (AUTO) 74.5 %; PLT - PLATELET COUNT 177 10^3/uL (130-450); RED BLOOD COUNT 3.31 10^6/uL (4.20-5.40); RED CELL DISTRIBUTION WIDTH 12.6 % (12.0-15.0); WHITE BLOOD COUNT 7.1 x10^3/uL (4.8-10.8)
[2018-05-03] MEDS: IBUPROFEN 800 MG TABLET PO SCH ×3 (07:37→18:56)
[2018-05-03] MEDS: SODIUM CHLORIDE FLUSH 0.9% 10 ML SYRINGE IVP SCH ×3 (07:38→12:45)
[2018-05-03] MEDS: SIMETHICONE CHEW 80 MG TABLET PO SCH ×4 (07:38→21:54)
--- NOTE | 2018-05-03 09:16 | PROVIDER PROGRESS NOTE ---
Subjective - Prog Note Date Prog Note Date: 05/03/18 Prog Note Time: 09:13 - Subjective Pt reports feeling: Improved Subjective: HEAD GREASE MAKER: POD #1 S/P LOW VERTICAL C/S FOR NRFHR S: No complaints, tolerating diet, comfortable O: VSS/AF CV RRR LCTAB Dressing on, Ux U-6 and NT, dressing on : normal lochia, lopez still in with clear urine MS/NM: no calf pain, SCDs on A/P: Doing well Routine orders, D/C lopez and SCDs today and remove dressing today. Colace bid for constipation Objective - Vital Signs/Intake & Output Vital Signs: Vital Signs x48h Temp Pulse Resp BP Pulse Ox 05/03/18 08:47 36.5 C 100 16 133/86 H 98 05/03/18 05:19 36.7 C 95 17 132/83 H 98 Intake & Output: Intake & Output 04/30/18 05/01/18 05/02/18 05/03/18 23:59 23:59 23:59 23:59 Intake Total 2495 1175 Output Total 975 575 Balance 1520 600 - Lab Results Fish Bones: 05/03/18 05:55 Other Labs: Lab Results x24hrs 05/03/18 Range/Units 05:55 WBC 7.1 (4.8-10.8) x10^3/uL RBC 3.31 L (4.20-5.40) 10^6/uL Hgb 10.0 L (12.0-16.0) g/dL Hct 29.4 L (37.0-47.0) % MCV 88.9 (81.0-99.0) fL MCH 30.3 (27.0-31.0) pg MCHC 34.1 (32.0-36.0) g/dL RDW 12.6 (12.0-15.0) % Plt Count 177 (130-450) 10^3/uL MPV 7.7 L (7.9-10.8) fL Neut # (Auto) 5.3 (1.5-6.6) 10^3/uL Lymph # (Auto) 1.2 L (1.5-3.5) 10^3/uL Sharkey # (Auto) 0.5 (0.0-1.0) 10^3/uL Eos # (Auto) 0.1 (0.0-0.7) 10^3/uL Baso # (Auto) 0.0 (0.0-0.1) 10^3/uL Absolute Nucleated RBC 0.01 x10^3/uL Nucleated RBC % 0.1 /100WBC
[2018-05-03] MEDS: SERTRALINE 50 MG TABLET PO SCH (21:11)
[2018-05-03] MEDS: DOCUSATE SODIUM 100 MG CAPSULE PO SCH (22:32)
[2018-05-04] MEDS: oxyCOD/ACETAMIN 5 MG/325 MG TABLET PO PRN ×3 (00:58→09:39)
[2018-05-04] MEDS: IBUPROFEN 800 MG TABLET PO SCH (03:57)
[2018-05-04 08:19] VITALS: BP 124/76
[2018-05-04] MEDS ORDERED: DOCUSATE SODIUM 100 MG CAPSULE PO SCH (09:00)
--- NOTE | 2018-05-04 09:02 | Discharge Plan ---
Discharge Plan Disposition: 01 Home, Self Care Condition: Good Diet: Regular Activity Restrictions: NO SEX, HEAVY LIFTING, STRENUOUS ACTIVITY X 6 WEEKS. Shower Restrictions: No Driving Restrictions: Yes (3 WEEKS) Additional Instructions or Follow Up instructions: FOLLOW UP AT [facility] IN 2 AND 6 WEEKS WITH A DOCTOR. CALL FOR APPOINTMENT. No Smoking: If you smoke, Please STOP! Call for help. Follow-up with: Terra Stewart PA-C [Primary Care Provider] - Hakan Maxwell MD [Provider Admit Priv/Credential] -
--- NOTE | 2018-05-04 09:06 | DISCHARGE SUMMARY ---
"Discharge Summary Admit Date: 05/01/18 Discharge Date: 05/04/18 Discharging Provider: FREDDY Condition at Discharge: Good Discharge Disposition: 01 Home, Self Care - DIAGNOSES Admission Diagnoses: LABOR Discharge Diagnoses with Status of Each Condition: LABOR, STATUS POST DELIVERY, STABLE NON-REASSURING HEART RATE TRACING, STABLE POST DELIVERY - HPI History of Present Illness: 28 yo admitted at 40 2/7 weeks in labor at 4 cm dilation. - CONSULTS | PROCEDURES Procedures: Pitocin Augmentation of Labor Epidural Anesthesia Low Vertical Section - HOSPITAL COURSE Hospital Course: The patient was augmented with pitocin and reached 7 cm dilation, underwent low vertical Section for more exposure given head deep in pelvis. Uncomplicated post-operative course. Delivery productive of 7 lbs. 15.7 onz male with 8/9. - ALLERGIES Allergies/Adverse Reactions: Allergies Allergy/AdvReac Type Severity Reaction Status Date / Time bupropion HCl * Allergy Unknown Verified 12/08/16 14:11 [From Wellbutrin] - MEDICATIONS Home Medications Other | Comments: Prescriptions at Discharge: MOTRIN 800 MG #45: 1 P.O. Q8H WF PRN, 1 RF PERCOCET 5/325 #25: 1 P.O. Q4H PRN PAIN - PHYSICAL EXAM AT DISCHARGE General Appearance: positive: No acute distress Eyes Bilateral: positive: Normal inspection ENT: positive: ENT inspection nml Neck: positive: Nml inspection Peripheral Pulses: positive: 2+ Abdomen: positive: Non-tender Back: positive: Nml inspection Skin: positive: Color nml, No rash, Warm Extremities: positive: Non-tender, Full ROM, Nml appearance Physical Exam Other/Comments: UX FIRM U-6 AND NT INCISION CLEAN AND DRY WITHOUT ERYTHEMA, STERIS INTACT - LABS Result Diagrams: 05/03/18 05:55 - FOLLOW UP Follow Up: FOLLOW UP IN [facility] 2 AND 6 WEEKS POST-OP WITH A AT [facility] - TIME SPENT Time Spent in Discharge (Minutes): 45"
[2018-05-04] MEDS: SIMETHICONE CHEW 80 MG TABLET PO SCH (09:39)
[2018-05-04] MEDS: DOCUSATE SODIUM 100 MG CAPSULE PO SCH (09:39)
[2018-05-04] MEDS ORDERED: RHO(D) IMMUNE GLOBULIN 300 MCG SYRINGE IM ONE (11:00)
[2018-05-04] MEDS ORDERED: MEASLES,MUMPS & RUBELLA VACC 0.5 ML VIAL SUBQ ONE (11:20)
--- NOTE | 2018-05-04 16:49 | Labor Flowsheet ---
Labor Flowsheet Datetime Report Generated by CPN: 05/04/2018 16:49 Datetime: 05/02/2018 16:50 ASSESSMENT A Monitor Mode: Doppler (Annotations: FHTs 137-144 in OR) Datetime: 05/02/2018 16:26 UTERINE ACTIVITY Monitor Mode: Internal Frequency (min): none after terb given Resting Tone IUP (mmHg): 15 FHR Baseline Rate : 140 Variability: Marked >25 bpm Decelerations: unable to determine d/t marked variability Actions for Decelerations: Oxygen Applied Category: Category II Datetime: 05/02/2018 16:24 Pulse: 112 SpO2 (%): 100 LaborFlag: Labor Datetime: 05/02/2018 16:15 VITAL SIGNS NBP Sys/Kassidy/Mean (mmHg): 142 : 70 : 88 Datetime: 05/02/2018 16:04 Tocolytics: Terbutaline 0.25mg Subcutaneous Medication Comments: IV per MD Datetime: 05/02/2018 16:00 PATIENT CARE Patient Position/Activity: Left Lateral Datetime: 05/02/2018 15:57 Duration (sec): 100-140 Intensity IUP (mmHg): 40-60 Datetime: 05/02/2018 15:56 VAGINAL EXAM Dilatation (cm): 7.0 Effacement (%): 100 Station: -2 Exam by: Mario Datetime: 05/02/2018 15:55 COMMUNICATION Communication: Provider at Bedside Communication Comments: Mario Datetime: 05/02/2018 15:45 Comments: c/s called Datetime: 05/02/2018 15:31 Respirations: 18 Temperature (C): 36.7 Datetime: 05/02/2018 15:30 Anesthesia Level Check: T11 Datetime: 05/02/2018 15:27 Stage of : Labor Pattern: Normal: <= 5 Contractions in 10 Minutes Accelerations: None MEDICATIONS Pitocin (milliunits): Increased to @ (Annotations: 2) Datetime: 05/02/2018 15:00 Provider Notified (Name): Milagrosa (Annotations: Notified provider of ctx Q6-8, no cervical change . Provider states to restart pit at 1mU) Datetime: 05/02/2018 14:58 Vaginal Exam Comments: no change Datetime: 05/02/2018 13:05 Patient Care Comments: sleeping Datetime: 05/02/2018 10:41 Monitor Interventions for FHR: FSE Applied Datetime: 05/02/2018 09:40 FHR Baseline Changes: No Baseline Change Datetime: 05/02/2018 08:35 Monitor Interventions for UA: IUPC Inserted Datetime: 05/02/2018 08:30 Quality: Strong Resting Tone (Palpate): Relaxed Datetime: 05/02/2018 08:02 Membranes Ruptured Date/Time: 05/02/2018 08:02 Membranes Rupture Method: Spontaneous Amniotic Fluid Color: Clear Amniotic Fluid Amount: Scant I/O Interventions: Archibald Cath Inserted Datetime: 05/02/2018 05:58 Temperature Route: Oral Datetime: 05/02/2018 05:50 Epidural Procedure Other: Single Dose Datetime: 05/02/2018 05:46 ANESTHESIA Anesthesia Plans: Epidural Epidural Positioning: Sitting Epidural Procedure: Test Dose Datetime: 05/02/2018 03:55 Membrane Status: Intact Datetime: 05/02/2018 01:07 Contraction Comments: UC's palpated mod, unable to monitor on toco Datetime: 05/02/2018 01:04 Antiemetics/Antacids: Vistaril (mg) @ 50
== END 2018-05-04 15:50 | disposition home or self-care (01) | DRG 766 ==
LOC: WFO 21:31 → FBP 21:32 → WFO 22:16 → FBP 05-02 17:34
PROVIDERS: ADMIT Registered Nurse; ATTEND Registered Nurse
PROC: 10D00Z1 Extraction of Products of Conception, Low, Open Approach (ICD-10-PCS; principal; 2018-05-02 16:15)
DX: O99.344 Other mental disorders complicating childbirth (principal); F41.9 Anxiety disorder, unspecified; O76 Abnormality in fetal heart rate and rhythm complicating labor and delivery; O77.0 Labor and delivery complicated by meconium in amniotic fluid; O26.893 Other specified pregnancy related conditions, third trimester; Z3A.40 40 weeks gestation of pregnancy; Z37.0 Single live birth; Z67.11 Type A blood, Rh negative
CPT/HCPCS: 36415; 82803; 83033; 85025; 86900; 86901; 99213

== ENCOUNTER 2020-06-09 10:23 | Outpatient (CLI) | payer OTHER ==
[2020-06-09 10:49] LABS: BASOPHILS # (AUTO) 0.1 10^3/uL (0.0-0.1); BASOPHILS % (AUTO) 1.5 %; EOSINOPHILS # (AUTO) 0.2 10^3/uL (0.0-0.7); EOSINOPHILS % (AUTO) 4.7 %; HGB - HEMOGLOBIN 16.2 g/dL (12.0-16.0); LYMPHOCYTES # (AUTO) 1.1 10^3/uL (1.5-3.5); LYMPHOCYTES % (AUTO) 23.3 %; MEAN CORPUSCULAR HEMOGLOBIN 32.1 pg (27.0-31.0); MEAN CORPUSCULAR HGB CONC 35.7 g/dL (32.0-36.0); MEAN CORPUSCULAR VOLUME 90.1 fL (81.0-99.0); MEAN PLATELET VOLUME 9.8 fL (7.9-10.8); MONOCYTES # (AUTO) 0.4 10^3/uL (0.0-1.0); MONOCYTES % (AUTO) 7.9 %; NEUTROPHILS # (AUTO) 2.9 10^3/uL (1.5-6.6); NEUTROPHILS % (AUTO) 62.4 %; PLT - PLATELET COUNT 244 10^3/uL (130-450); RED BLOOD COUNT 5.04 10^6/uL (4.20-5.40); RED CELL DISTRIBUTION WIDTH 12.2 % (12.0-15.0); WHITE BLOOD COUNT 4.7 x10^3/uL (4.8-10.8)
[2020-06-09 11:08] LABS: ALBUMIN 4.4 g/dL (3.2-5.5); ALBUMIN/GLOBULIN RATIO 1.4 (1.0-2.2); CALCIUM 9.6 mg/dL (8.5-10.3); CREATININE 0.6 mg/dL (0.4-1.0); TOTAL PROTEIN 7.5 g/dL (6.7-8.2)
--- NOTE | 2020-06-09 12:40 | Ultrasound Report ---
PROCEDURE: OB First Trimester INDICATIONS: LAB DRAW,PRESENCE OF IUD,POS PG TEST OUTSIDE/PRIOR DATING DATA: Last menstrual period (LMP): 04/17/2020. LMP-based estimated date of delivery (SUHAS): 01/22/2021. First dating scan (date and location): This study. Estimated date of delivery (SUHAS) from first dating scan: 02/02/2021. TECHNIQUE: Real-time scanning was performed of the fetus and maternal pelvic organs, with image documentation. COMPARISON: None for this FINDINGS: Single living intrauterine gestation. Embryo: Selma-rump length of 3.6 mm correlates with a gestational age of 6 weeks 0 days, +/- 5 days. cardiac activity was observed at 116 bpm. Low uterine margin/cervix positioning of IUD. Measurement variability in dating: +/- 4 weeks by LMP, +/- 7 days by mean sac diameter (use before 6 weeks gestation if crown-rump length not able to be measured), +/- 5 days by crown-rump length (6-12 weeks gestation). Maternal organs: Ovaries appear normal considering gestational status. Limited images through the k idneys demonstrate no hydronephrosis. IMPRESSION: Single living intrauterine gestation with heart rate 160 bpm present, IUD below the level of the gest ation at the low uterine segment/cervix. Ovaries appear normal. Assuming viable gestation delivery da te would be projected to be centered on 02/02/2021, +/- 5 days. Reviewed by: Charan Colunga MD on 06/09/2020 12:39 PM PDT Approved by: Charan Colunga MD on 06/09/2020 12:39 PM PDT Station ID: [id number]
--- NOTE | 2020-06-09 13:08 | Ultrasound Report ---
PROCEDURE: OB Transvaginal INDICATIONS: LAB DRAW,PRESENCE OF IUD,POS PG TEST TECHNIQUE: Transvaginal ultrasound. COMPARISON: First trimester OB ultrasound, first study, obtain shortly before this study same day.. FINDINGS: Transvaginal ultrasound allows clear visualization of a single living intrauterine gestation with car diac activity documented. No perigestational hemorrhage is found. Note is made of an IUD at the low u terine segment extending into the cervix. That is located well below the gestation. IMPRESSION: Single living intrauterine gestation, cardiac activity observed. No sign of subchorionic hemorr jaylen. Note is made of an IUD located below the level of the gestational implantation. Reviewed by: Charan Colunga MD on 06/09/2020 1:07 PM PDT Approved by: Charan Colunga MD on 06/09/2020 1:07 PM PDT Station ID: [id number]
== END 2020-06-09 10:24 | disposition home or self-care (01) ==
LOC: LAB 10:23 → DI 10:24
PROVIDERS: ATTEND Obstetrics & Gynecology
DX: Z32.01 Encounter for pregnancy test, result positive (principal); Z97.5 Presence of (intrauterine) contraceptive device
CPT/HCPCS: 36415; 76801; 76817; 80053; 84702; 85025; 86900; 86901

== ENCOUNTER 2020-07-02 18:53 | Outpatient (CLI) | payer OTHER ==
--- NOTE | 2020-07-02 19:40 | Ultrasound Report ---
PROCEDURE: OB First Trimester INDICATIONS: POSITIVE TEST OUTSIDE/PRIOR DATING DATA: Last menstrual period (LMP): 04/17/2020 LMP-based estimated date of delivery (SUHAS): 01/22/2021. First dating scan (date and location): 06/09/2020. Estimated date of delivery (SUHAS) from first dating scan: 02/02/2021. TECHNIQUE: Real-time scanning was performed of the fetus and maternal pelvic organs, with image documentation. COMPARISON: 06/09/2020 FINDINGS: Embryo: Single intrauterine gestational sac is seen with fetus seen. heart rate is 173 bpm. Cr own-rump length measures 2.6 cm. Estimated gestational age based on current study is 9 weeks 3 days. Estimated gestational age based on previous study is 9 weeks 2 days. There is no definite perigestati onal hemorrhage. Placental cyst measures 6 mm in size is seen. Measurement variability in dating: +/- 4 weeks by LMP, +/- 7 days by mean sac diameter (use before 6 weeks gestation if crown-rump length not able to be measured), +/- 5 days by crown-rump length (6-12 weeks gestation). Maternal organs: Ovaries are visualized. Left ovary is within normal limits. Corpus luteal cyst in r ight ovary is seen measures 2.3 x 1.7 x 2 cm in size. Limited images through the kidneys demonstrate no hydronephrosis. IMPRESSION: 1. Single live intrauterine with fetus seen. heart rate is 173 bpm. Normal grow th. 2. Corpus luteal cyst seen in right ovary. Tiny placental cyst measures 6 mm in size. Reviewed by: Oli Jimenez MD on 07/02/2020 7:39 PM PDT Approved by: Oli Jimenez MD on 07/02/2020 7:39 PM PDT Station ID: [id number]
== END 2020-07-02 18:54 | disposition home or self-care (01) ==
LOC: DI 18:53
PROVIDERS: ATTEND Obstetrics & Gynecology
DX: O34.81 Maternal care for other abnormalities of pelvic organs, first trimester (principal); N83.11 Corpus luteum cyst of right ovary; O43.191 Other malformation of placenta, first trimester; Z3A.09 9 weeks gestation of pregnancy
CPT/HCPCS: 76801

== ENCOUNTER 2020-07-11 15:00 | Outpatient (CLI) | payer OTHER, BC ==
[2020-07-11 15:21] LABS: BASOPHILS # (AUTO) 0.1 10^3/uL (0.0-0.1); BASOPHILS % (AUTO) 1.3 %; EOSINOPHILS # (AUTO) 0.4 10^3/uL (0.0-0.7); EOSINOPHILS % (AUTO) 6.7 %; HGB - HEMOGLOBIN 15.1 g/dL (12.0-16.0); LYMPHOCYTES # (AUTO) 1.6 10^3/uL (1.5-3.5); LYMPHOCYTES % (AUTO) 26.2 %; MEAN CORPUSCULAR HEMOGLOBIN 30.8 pg (27.0-31.0); MEAN CORPUSCULAR HGB CONC 34.8 g/dL (32.0-36.0); MEAN CORPUSCULAR VOLUME 88.4 fL (81.0-99.0); MEAN PLATELET VOLUME 9.8 fL (7.9-10.8); MONOCYTES # (AUTO) 0.4 10^3/uL (0.0-1.0); MONOCYTES % (AUTO) 7.2 %; NEUTROPHILS # (AUTO) 3.5 10^3/uL (1.5-6.6); NEUTROPHILS % (AUTO) 58.3 %; PLT - PLATELET COUNT 289 10^3/uL (130-450); RED BLOOD COUNT 4.91 10^6/uL (4.20-5.40); RED CELL DISTRIBUTION WIDTH 11.9 % (12.0-15.0)
[2020-07-12 08:07] LABS: HEPATITIS B SURFACE ANTIGEN NON-REACTIVE (NON-REACTIVE); HEPATITIS C ANTIBODY NON-REACTIVE (NON-REACTIVE)
[2020-07-12 09:37] LABS: HIV AG/AB 4TH GEN NON-REACTIVE (NON-REACTIVE)
== END 2020-07-11 15:01 | disposition home or self-care (01) ==
LOC: LAB 15:00
PROVIDERS: ATTEND Obstetrics & Gynecology
DX: Z32.01 Encounter for pregnancy test, result positive (principal)
CPT/HCPCS: 36415; 81599; 85025; 86592; 86762; 86803; 86850; 86900; 86901; 87340; 87389

== ENCOUNTER 2020-08-23 18:48 | Outpatient (CLI) | payer OTHER, BC ==
--- NOTE | 2020-08-23 22:26 | Ultrasound Report ---
PROCEDURE: Abdomen Complete INDICATIONS: RUQ PAIN, POSITIVE TEST TECHNIQUE: Real-time scanning was performed of the abdominal and retroperitoneal organs, with image documentatio n. COMPARISON: None. FINDINGS: Liver: Liver is normal in size and homogeneous in echotexture. Gallbladder: Gallbladder contains 2 nonmobile shadowing gallstones near the gallbladder neck. One fernando sures approximately 1.3 cm in maximum dimension and the second measures approximately 1.0 cm in maxim um dimension. No gallbladder wall thickening. No pericholecystic fluid. Negative sonographic Burnham's . Biliary ducts: Intrahepatic bile ducts are non-dilated. Extrahepatic bile duct caliber measures 7 m m. Normal is 6-7 mm or less in diameter, or 10 mm or less post-cholecystectomy. Pancreas: Pancreas is not well visualized.. Spleen: Spleen is prominent in size and homogeneous in echotexture. Kidneys: Kidneys are normal in size and echotexture. Right kidney measures 12.6 cm long; left kidne y measures 12.4 cm long. No hydronephrosis or nephrolithiasis. No solid masses. Aorta: Visualized aorta is normal in caliber at less than 3 cm. Iliacs: Proximal common iliac arteries are normal in caliber at less than 2.5 cm. IVC: Intrahepatic inferior vena cava is patent. Miscellaneous: No free abdominal fluid. IMPRESSION: Cholelithiasis without sonographic evidence for acute cholecystitis. Of note, both of the visualized gallstones are nonmobile within the gallbladder neck. Reviewed by: Landon Bonilla MD on 08/23/2020 10:25 PM PDT Approved by: Landon Bonilla MD on 08/23/2020 10:25 PM PDT Station ID: [id number]
== END 2020-08-23 18:49 | disposition home or self-care (01) ==
LOC: DI 18:48
PROVIDERS: ATTEND Obstetrics & Gynecology
DX: K80.20 Calculus of gallbladder without cholecystitis without obstruction (principal)
CPT/HCPCS: 76700

== ENCOUNTER 2020-09-01 20:24 | Emergency (ER) | payer OTHER, BC ==
[2020-09-01 21:13] LABS: BILIRUBIN,URINE NEGATIVE (NEGATIVE); CLARITY,URINE CLEAR (CLEAR); GLUCOSE, URINE (UA) NEGATIVE (NEGATIVE); KETONES,URINE (UA) >=80 mg/dL (NEGATIVE); LEUKOCYTE ESTERASE, URINE NEGATIVE (NEGATIVE); NITRITE,URINE NEGATIVE (NEGATIVE); OCCULT BLOOD,URINE NEGATIVE (NEGATIVE); PROTEIN,URINE TRACE mg/dL (NEGATIVE); UROBILINOGEN,URINE 0.2 (NORMAL) E.U./dL (NORMAL)
[2020-09-01 21:20] LABS: BASOPHILS % (AUTO) 0.5 %; EOSINOPHILS # (AUTO) 0.1 10^3/uL (0.0-0.7); EOSINOPHILS % (AUTO) 0.6 %; HGB - HEMOGLOBIN 13.9 g/dL (12.0-16.0); LYMPHOCYTES # (AUTO) 0.8 10^3/uL (1.5-3.5); MEAN CORPUSCULAR HGB CONC 36.4 g/dL (32.0-36.0); MEAN CORPUSCULAR VOLUME 87.8 fL (81.0-99.0); MEAN PLATELET VOLUME 9.6 fL (7.9-10.8); MONOCYTES # (AUTO) 0.3 10^3/uL (0.0-1.0); NEUTROPHILS # (AUTO) 7.3 10^3/uL (1.5-6.6); NEUTROPHILS % (AUTO) 86.5 %; PLT - PLATELET COUNT 247 10^3/uL (130-450); RED BLOOD COUNT 4.35 10^6/uL (4.20-5.40); WHITE BLOOD COUNT 8.5 x10^3/uL (4.8-10.8)
[2020-09-01 21:24] LABS: ALBUMIN 4.2 g/dL (3.2-5.5); ALBUMIN/GLOBULIN RATIO 1.1 (1.0-2.2); BILIRUBIN,TOTAL 0.8 mg/dL (0.2-1.0); CALCIUM 9.8 mg/dL (8.5-10.3); CREATININE 0.6 mg/dL (0.4-1.0); TOTAL PROTEIN 8.2 g/dL (6.7-8.2)
[2020-09-01] MEDS ORDERED: ONDANSETRON 4 MG/2 ML VIAL IVP STA (21:33)
[2020-09-01] MEDS ORDERED: KETOROLAC 30 MG/ML VIAL IVP STA (22:02)
--- NOTE | 2020-09-01 22:34 | ED Physician Documentation ---
PD HPI ABD PAIN - Stated complaint Stated Complaint: ABD PAIN - Chief complaint Chief Complaint: Abd Pain - History obtained from History obtained from: Patient - History of Present Illness Timing - onset: Enter time (1300), Today Timing - duration: Hours Timing - details: Abrupt onset, Still present Pain level max: 9 Pain level now: 9 Quality: Sharp, Pain Location: RUQ Radiation: Upper back Improved by: Vomiting, Position Worsened by: Eating, Moving, Breathing, Position, Palpation Associated symptoms: Nausea, Vomiting Similar symptoms before: Diagnosis (gallstones) Recently seen: Clinic - Additional information Additional information: 30-year-old female who is 18 weeks has developed pain in the right upper quadrant that is been present for about 2 months on and off. She has pain after eating and she has episodes and this is the worst episode she has had. She had an ultrasound done of her gallbladder 9 days ago that demonstrated 2 stones lodged in the neck of the gallbladder. She did not have cholecystitis at the time. Today she has had very little to eat had some popcorn and at 1 PM developed right upper quadrant pain and vomiting. She has had persistence of this pain and comes into the emergency department now with 9 out of 10 pain. She has had resolution of her symptoms previously within hours and she has had symptoms for about 2 months. She has not had fever. 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 - Allergies Allergies/Adverse Reactions: Allergies Allergy/AdvReac Type Severity Reaction Status Date / Time bupropion HCl * Allergy Unknown Verified 09/01/20 20:29 [From Wellbutrin] oxycodone Allergy Rash Verified 09/01/20 20:29 - Social History Does the pt smoke?: No Smoking Status: Former smoker Does the pt drink ETOH?: No Does the pt have substance abuse?: Yes - Immunizations Immunizations are current?: Yes - POLST Patient has POLST: No PD ED PE NORMAL - Vitals Vital signs reviewed: Yes (hypertensive ) - General General: Alert and oriented X 3, Well developed/nourished, Other (The patient is vomiting and appears to be in pain clutching her right upper quadrant. ) - HEENT HEENT: Atraumatic, PERRL, EOMI - Neck Neck: Supple, no meningeal sign, No bony TTP - Cardiac Cardiac: RRR, No murmur - Respiratory Respiratory: No respiratory distress, Clear bilaterally - Abdomen Abdomen: Soft, Other (RUQ pain to palpation arrests breathing ) - Back Back: No CVA TTP, No spinal TTP - Derm Derm: Normal color, Warm and dry, No rash - Extremities Extremities: No deformity, No edema, No calf tenderness / cord - Neuro Neuro: Alert and oriented X 3, hand lacer 2-12 intact, No motor deficit, No sensory deficit, Normal speech Eye Opening: Spontaneous Motor: Obeys Commands Verbal: Oriented GCS Score: 15 - Psych Psych: Normal mood, Normal affect Results - Vitals Vitals: Vital Signs - 24 hr 09/01/20 09/01/20 09/01/20 20:29 21:08 23:00 Temperature 36.5 C Heart Rate 90 87 81 Respiratory 16 18 16 Rate Blood Pressure 116/99 H 124/93 H 126/85 H O2 Saturation 100 100 98 09/01/20 09/02/20 23:01 00:35 Temperature Heart Rate 81 88 Respiratory 16 18 Rate Blood Pressure 97/71 112/77 O2 Saturation 100 96 Oxygen O2 Source Room air - Labs Labs: Laboratory Tests 09/01/20 09/01/20 09/01/20 20:55 21:05 21:15 WBC 8.5 RBC 4.35 Hgb 13.9 Hct 38.2 MCV 87.8 MCH 32.0 H MCHC 36.4 H RDW 13.0 Plt Count 247 MPV 9.6 Neut # (Auto) 7.3 H Lymph # (Auto) 0.8 L [place] # (Auto) 0.3 Eos # (Auto) 0.1 Baso # (Auto) 0.0 Absolute Nucleated RBC 0.00 Nucleated RBC % 0.0 Sodium 136 Potassium 3.1 L Chloride 101 Carbon Dioxide 18 L Anion Gap 17.0 H BUN 5 L Creatinine 0.6 Estimated GFR (MDRD) 119 Glucose 137 H Calcium 9.8 Total Bilirubin 0.8 AST 26 ALT 35 Alkaline Phosphatase 46 Total Protein 8.2 Albumin 4.2 Globulin 4.0 Albumin/Globulin Ratio 1.1 Lipase 28 Urine Color YELLOW Urine Clarity CLEAR Urine pH 6.0 Ur Specific [place] >=1.030 H Urine Protein TRACE Urine Glucose (UA) NEGATIVE Urine Ketones >=80 H Urine Occult Blood NEGATIVE Urine Nitrite NEGATIVE Urine Bilirubin NEGATIVE Urine Urobilinogen 0.2 (NORMAL) Ur Leukocyte Esterase NEGATIVE Ur Microscopic Review NOT INDICATED Urine Culture Comments NOT INDICATED - Rads (name of study) ultrasound RUQ Radiology: Prelim report reviewed (Impression: Cholelithiasis with a 0.9 cm stone impacted in the gallbladder neck. No sonographic finding for acute cholecystitis.), EMP read indepedently, See rad report PD MEDICAL DECISION MAKING - ED course Complexity details: reviewed old records, reviewed results, re-evaluated patient, considered differential, d/w patient, d/w family ED course: 30-year-old female 18 weeks with right upper quadrant abdominal pain and a stone lodged in the neck of the gallbladder. She has improvement in her pain with use of Toradol. Prior to that she was writhing in pain appeared quite uncomfortable and had uncontrolled vomiting. The surgeon is consulted in the case and recommends that the patient contact her HOSPITAL ACCOUNT MANAGER tomorrow to get a referral to surgery here on the [place] for cholecystectomy. Dr. Rose indicates she would be comfortable taking out the gallbladder on this 18-week female and she recommends a liquid diet until this is achieved. She recommends making certain the patient is hydrated and her pain is controlled as well as her nausea. The patient is administered a liter of saline and 10meq KCL IV and she feels much improved and is able to tolerate oral potassium. Departure - Departure Disposition: 01 Home, Self Care Clinical Impression: Dehydration Cholelithiasis Qualifiers: Cholelithiasis location: gallbladder Cholecystitis presence: without cholecystitis Biliary obstruction: without biliary obstruction Qualified Code(s): K80.20 - Calculus of gallbladder without cholecystitis without obstruction Condition: Stable Instructions: ED Dehydration, ED Gallstone W Biliary Colic Follow-Up: Shyam Rose MD [Provider Admit Priv/Credential] - Terra Stewart PA-C [Primary Care Provider] - Naheed King MD [Provider Admit Priv/Credential] - Comments: Follow-up in the morning with Dr. King for a referral to surgery. Removal of your gallbladder is indicated to resolve this issue. Our surgeon Dr. Rose is comfortable with removal of your gallbladder during your as long as your HOSPITAL ACCOUNT MANAGER doctor has no objections. In the mean time a liquid diet will aid in reducing symptoms.
[2020-09-01] MEDS ORDERED: SODIUM CHLORIDE 0.9% 1,000 ML IV STA (23:21)
[2020-09-01] MEDS ORDERED: POTASSIUM CHLOR 10 MEQ/100 ML 10 MEQ/100 ML BAG IV ONE (23:32)
[2020-09-02] MEDS ORDERED: POTASSIUM CHLOR 10 MEQ/100 ML 10 MEQ/100 ML BAG IV ONE (00:40)
[2020-09-02] MEDS ORDERED: POTASSIUM CHLORIDE 20 MEQ TABLET PO STA (00:48)
[2020-09-02 01:14] VITALS: BP 131/92
--- NOTE | 2020-09-02 08:09 | Ultrasound Report ---
PROCEDURE: Abdomen Limited INDICATIONS: RUQ abd pain TECHNIQUE: Real-time scanning was performed of the abdominal and retroperitoneal organs, with image documentatio n. COMPARISON: 08/23/2020 FINDINGS: Liver: Visualized portions of the liver appear homogeneous in echotexture. Gallbladder: Redemonstration of 2 gallstones. One appears to be mobile measuring 1.2 cm in size. The second stone remains nonmobile within the gallbladder neck and measuring 0.9 cm in size. Biliary ducts: Intrahepatic bile ducts are non-dilated. Extrahepatic bile duct caliber measures 3 m m. Normal is 6-7 mm or less in diameter, or 10 mm or less post-cholecystectomy. Pancreas: Pancreas not well visualized secondary to bowel gas. Kidneys: Right kidney is normal in size and echotexture. Right kidney measures 12.4 cm long. No hydr onephrosis or nephrolithiasis. No solid masses. Miscellaneous: No free abdominal fluid. Single living intrauterine gestation is again noted with fe donis heart rate measuring 155 bpm. IMPRESSION: 1. Cholelithiasis without sonographic evidence for acute cholecystitis. 2. Single living intrauterine gestation. No significant discrepancy with initial interpretation by overnight radiologist. Reviewed by: Landon Bonilla MD on 09/02/2020 8:08 AM PDT Approved by: Landon Bonilla MD on 09/02/2020 8:08 AM PDT Station ID: [id number]
== END 2020-09-02 01:13 | disposition home or self-care (01) ==
LOC: ED 20:24
DX: O99.612 Diseases of the digestive system complicating pregnancy, second trimester (principal); K80.20 Calculus of gallbladder without cholecystitis without obstruction; O99.282 Endocrine, nutritional and metabolic diseases complicating pregnancy, second trimester; E86.0 Dehydration; Z3A.18 18 weeks gestation of pregnancy; Z87.891 Personal history of nicotine dependence
CPT/HCPCS: 36415; 76705; 80053; 81003; 83690; 85025; 96365; 96366; 96375; 99284; A9270; 81001; 87086

== ENCOUNTER 2020-09-12 11:44 | Outpatient (CLI) | payer OTHER, BC | END 2020-09-12 11:45 | disposition home or self-care (01) | LOC: LAB 11:44 | PROVIDERS: ATTEND Surgery | DX: Z01.812 Encounter for preprocedural laboratory examination (principal); K80.10 Calculus of gallbladder with chronic cholecystitis without obstruction; Z20.828 Contact with and (suspected) exposure to other viral communicable diseases ==

== ENCOUNTER 2020-09-15 09:26 | Day surgery (SDC) | payer OTHER, BC ==
[~2020-09-15 09:26] MED LIST: CEFAZOLIN SODIUM IN 0.9 % NACL 2 GM/100 ML BAG IV ONE
[2020-09-15] MEDS ORDERED: LACTATED RINGERS 1,000 ML IV ONE ×2 (09:31→12:04)
--- NOTE | 2020-09-15 09:46 | ANESTHESIA ---
Pre-Anesthesia VS, & Labs - Diagnosis cholelithiasis, cholecystitis - Procedure laparoscopic cholecystectomy Vital Signs: Temp Pulse Resp BP Pulse Ox 36 C L 74 16 114/73 100 09/15/20 09:31 09/15/20 09:31 09/15/20 09:31 09/15/20 09:31 09/15/20 09:31 Height: 5 ft 7 in Weight (kg): 80 kg Body Mass Index: 27.6 BMI Classification: Overweight - NPO >8 hours - Is Patient ?: Yes (discussed risks of possible labor) Home Medications and Allergies Allergies/Adverse Reactions: Allergies Allergy/AdvReac Type Severity Reaction Status Date / Time bupropion HCl * Allergy Unknown Verified 09/01/20 20:29 [From Wellbutrin] oxycodone Allergy Rash Verified 09/01/20 20:29 Anes History & Medical History - Anesthetic History Anesthesia Complications: reports: No previous complications Family history of Anesthesia Complications: Denies Family history of Malignant Hyperthermia: Denies - Medical History Cardiovascular: reports: None Pulmonary: reports: None Gastrointestinal: reports: None Urinary: reports: None Musculoskeletal: reports: None Endocrine/Autoimmune: reports: None Skin: reports: None Smoking Status: Former smoker Psychosocial: reports: Anxiety - Surgical History Gynecologic: Other Exam General: Alert, Oriented x3, Cooperative, No acute distress Dental: WNL Mouth Openin Fingerbreadth Neck Mobility: Normal Mallampati classification: II Respiratory: Lungs clear, Normal breath sounds, No respiratory distress, No accessory muscle use Cardiovascular: Regular rate, Normal S1, Normal S2, No murmurs Plan Anesthesia Type: General Consent for Procedure(s) Verified and Reviewed: Yes Code Status: Attempt Resuscitation ASA classification: 2-Mild systemic disease Is this case an emergency?: No
[2020-09-15] MEDS ORDERED: MORPHINE 2 MG/ML CARPUJECT IVP PRN (10:11)
[2020-09-15] MEDS ORDERED: METOCLOPRAMIDE 10 MG/2 ML VIAL IVP PRN (10:11)
[2020-09-15] MEDS ORDERED: ONDANSETRON 4 MG/2 ML VIAL IVP PRN ×2 (10:11→12:06)
[2020-09-15] MEDS ORDERED: ePHEDrine 50 MG/ML VIAL IVP PRN (10:11)
[2020-09-15] MEDS ORDERED: ATROPINE ABBOJECT 1 MG/10 ML SYRINGE IVP PRN (10:11)
[2020-09-15] MEDS ORDERED: NALOXONE 0.4 MG/ML VIAL IVP PRN (10:11)
[2020-09-15] MEDS ORDERED: fentaNYL 100 MCG/2 ML VIAL IVP PRN (10:11)
[2020-09-15] MEDS ORDERED: HYDROmorphone 0.5 MG/0.5 ML SYRINGE IVP PRN (10:11)
[2020-09-15] MEDS ORDERED: LIDOCAINE 1%-EPI 1:100000 20 ML MDV ONE (10:47)
[2020-09-15] MEDS ORDERED: BUPIVACAINE 0.5% PF 30 ML VIAL ONE (10:48)
[2020-09-15] MEDS ORDERED: LACTATED RINGERS 1,000 ML IV SCH (11:00)
[2020-09-15] MEDS ORDERED: ePHEDrine 50 MG/ML VIAL IVP ONE (11:12)
[2020-09-15] MEDS ORDERED: ROCURONIUM 50 MG/5 ML VIAL IVP ONE (11:12)
[2020-09-15] MEDS ORDERED: SUCCINYLCHOLINE 200 MG/10 ML VIAL IVP ONE (11:12)
[2020-09-15] MEDS ORDERED: fentaNYL 100 MCG/2 ML VIAL IVP ONE (11:12)
[2020-09-15] MEDS ORDERED: MIDAZOLAM 2 MG/2 ML VIAL IVP ONE (11:12)
[2020-09-15] MEDS ORDERED: PROPOFOL 200 MG/20 ML VIAL IVP ONE (11:12)
[2020-09-15] MEDS ORDERED: DEXAMETHASONE 4 MG/ML VIAL IVP ONE (11:12)
[2020-09-15] MEDS ORDERED: ONDANSETRON 4 MG/2 ML VIAL IVP ONE (11:12)
[2020-09-15] MEDS ORDERED: LIDOCAINE 1%-EPI 1:100000 20 ML MDV SUBQ ONE ×2 (11:39→11:49)
[2020-09-15] MEDS ORDERED: BUPIVACAINE 0.5% PF 30 ML VIAL SUBQ ONE ×2 (11:39→11:50)
--- NOTE | 2020-09-15 12:03 | OPERATIVE REPORT ---
Operative Report - General Procedure Date: 09/15/20 Planned Procedure: Laparoscopic cholecystectomy Pre-Op Diagnosis: Cholelithiasis and cholecystitis Procedure Performed: Lap mak Post Op Diagnosis: Cholelithiasis and cholecystitis - Other Other Information/Narrative: After obtaining informed consent the patient is brought to the operating room and placed in the supine position on the operating table. Following successful induction of general endotracheal anesthesia, appropriate padding of all bony prominences, and placement of appropriate monitors, the abdomen was prepped and draped in the standard surgical fashion. A timeout was held per scope protocol. All elements of the surgical safety checklist were followed before, during, and after the procedure. heart tones were checked in the preoperative area. Following infiltration with local anesthetic to create a field block, an incision was created superior to the umbilicus and carried down through the skin and subcutaneous tissue to reveal the fascia below. 2-0 Vicryl retention sutures were placed on either side of the midline and the abdomen was entered under direct vision using a 15 blade scalpel. A 10 mm blunt Luque balloon trocar was placed in the abdominal cavity and it was insufflated to 15 mmHg pressure. The patient was placed in reverse Trendelenburg position with the left side rotated toward the floor. A second trocar, 5 mm, was placed in the midepigastrium under direct vision and after anesthetization of the surrounding skin.A third trocar, also 5 mm was placed in the right upper quadrant for retraction of the gallbladder and a fourth 1 just medial to that as a working port as well. A survey of the abdomen reveaed a distended and taut gallbladder in the right upper quadrant and gravid uterus in the pelvis. Findings were documented photographically. The gallbladder was examined. It was adherent to the surrounding structures including the omentum and the right colon. These structures were carefully dissected free from the surface of the gallbladder using a mixture of blunt and sharp dissection. The fundus of the gallbladder was then grasped and elevated up over the liver revealing the cholecysto hepatoduodenal ligament. The neck of the gallbladder was retracted laterally and the cystic duct and artery were carefully identified. The common duct was visualized but not skeletonized. The cystic duct was clipped 3 times proximally and once distally and divided, the cystic artery was clipped twice proximally, once distally, and divided. The gallbladder was then liberated from its bed in the liver using cautery. It was placed in an Endo Catch bag and removed via the umbilical port with a camera in the epigastric position. The camera was replaced in the umbilical position and the abdomen was checked for hemostasis. It was irrigated with warm saline solution and aspirated free of all fluid and particulate matter. The trochars were then removed under direct vision and the abdomen desufflated. The umbilical incision was closed with interrupted Vicryl suture and Monocryl was placed in all of the skin incisions. All sponge, needle, and instrument counts were correct at the conclusion of the case. The patient was allowed awaken from anesthesia without difficulty and taken to the postanesthesia care unit in good condition.
[2020-09-15] MEDS ORDERED: SUGAMMADEX 200 MG/2 ML VIAL IVP ONE (12:04)
[2020-09-15] MEDS ORDERED: ACETAMINOPHEN 325 MG TABLET PO PRN (12:06)
[2020-09-15] MEDS ORDERED: traMADol 50 MG TABLET PO PRN (12:06)
[2020-09-15] MEDS ORDERED: ONDANSETRON 4 MG/2 ML VIAL ONE (12:16)
[2020-09-15] MEDS ORDERED: ACETAMINOPHEN 1,000 MG/100 ML 100 ML IV ONE (12:16)
--- NOTE | 2020-09-15 14:36 | ANESTHESIA POST OP EVALUATION ---
Anesthesia Post Eval - Post Anesthesia Eval Vitals: Last Vital Signs Temp 36.6 C 09/15/20 13:52 Pulse 68 09/15/20 13:52 Resp 16 09/15/20 13:52 BP 96/66 09/15/20 13:52 Pulse Ox 99 09/15/20 13:52 CV Function Including HR & BP: positive: Stable Pain Control: positive: Satisfactory Nausea & Vomiting: positive: Negative Mental Status: positive: Baseline Respiratory Status: Airway Patent Hydration Status: Satisfactory Anesthesia Complications: positive: None
[2020-09-15 14:43] VITALS: BP 110/82
== END 2020-09-15 09:27 | disposition home or self-care (01) ==
LOC: SDS 09:26
PROVIDERS: ATTEND Surgery
PROC: 0FT44ZZ Resection of Gallbladder, Percutaneous Endoscopic Approach (ICD-10-PCS; principal; 2020-09-15 10:30)
DX: O99.612 Diseases of the digestive system complicating pregnancy, second trimester (principal); K80.10 Calculus of gallbladder with chronic cholecystitis without obstruction; Z3A.19 19 weeks gestation of pregnancy; Z87.891 Personal history of nicotine dependence
CPT/HCPCS: 47562; J0131; J0330; J0690; J7120

== ENCOUNTER 2020-10-03 15:18 | Outpatient (CLI) | payer OTHER, BC ==
--- NOTE | 2020-10-03 23:00 | Ultrasound Report ---
PROCEDURE: OB Detailed Eval INDICATIONS: SCREENING OUTSIDE/PRIOR DATING DATA: Last menstrual period (LMP): 04/17/2020. LMP-based estimated date of delivery (SUHAS): 01/22/2021. First dating scan (date and location): 06/09/2020. [place]. Estimated date of delivery (SUHAS) from first dating scan: 02/01/2021. TECHNIQUE: Real-time scanning was performed of the fetus, with image documentation and biometric measurements. Endovaginal scanning: Performed COMPARISON: None. FINDINGS: General: A single living intrauterine gestation is present. Presentation: Variable Placenta: Placental position is posterior, without previa. Amniotic fluid index: 16.8 cm, 69.7% for gestational age. Largest pocket is 5.9 cm heart rate: 147 beats per minute. Maternal cervical canal: 3.2 cm long; normal length is 2.5 cm or more. biometrics: Biparietal diameter: 23 weeks 0 days Head circumference: 22 weeks 6 days Abdominal circumference: 22 weeks 5 days Femur length: 22 weeks 5 days Estimated gestational age from initial scan: not applicable. Composite gestational age from present scan: 22 weeks 4 days Estimated weight and percentile: 532 g, 52.9% Measurement variability in biometric dating: +/- 10 days from 12-20 weeks gestation, +/- 2 weeks from 20-30 weeks gestation, +/- 3 weeks at 30 weeks gestation or later. Anatomic survey: Neuro: Ventricles are normal at less than 10 mm. Cisterna magna is normal at 3-11 mm. Cerebellum i s normal in size and morphology. Nuchal skin fold: Normal at less than 6 mm between 14 and 20 weeks gestational age. Face: Nose and lips, facial profile are normal. Spine: No evidence for spina bifida. Heart: 4-chambered heart is present, with normal ventricular outflow tracts. Diaphragm: Diaphragm is intact. Stomach: Left-sided stomach is present. Kidneys: Bilateral mild pelviectasis measuring 3 mm on the right and 5 mm on the left. Normal is les s than 5 mm in 2nd trimester, less than 7 mm in 3rd trimester. Cord: 3 vessel cord has orthotopic insertion. Bladder: Normal in size. Extremities: All 4 extremities are visualized. IMPRESSION: Live intrauterine with a composite gestational age of 22 weeks 4 days on this scan. 2. Estimated weight = 532 g, 52.9 percentile. 3. Normal MEGHNA. 4. Mild bilateral pelviectasis at the upper limits of normal measuring 3 mm on the right and 5 mm on the left. Reviewed by: Benjamin Magaña on 10/03/2020 10:58 PM [facility] Approved by: Benjamin Magaña on 10/03/2020 10:58 PM [facility] Station ID: [id number]
== END 2020-10-03 15:19 | disposition home or self-care (01) ==
LOC: DI 15:18
PROVIDERS: ATTEND Obstetrics & Gynecology
DX: Z36.89 Encounter for other specified antenatal screening (principal)
CPT/HCPCS: 76811

== ENCOUNTER 2020-11-04 10:17 | Outpatient (CLI) | payer OTHER, BC ==
[2020-11-04 12:19] LABS: BASOPHILS # (AUTO) 0.1 10^3/uL (0.0-0.1); BASOPHILS % (AUTO) 1.1 %; EOSINOPHILS # (AUTO) 0.4 10^3/uL (0.0-0.7); EOSINOPHILS % (AUTO) 7.2 %; HGB - HEMOGLOBIN 12.9 g/dL (12.0-16.0); LYMPHOCYTES # (AUTO) 1.3 10^3/uL (1.5-3.5); LYMPHOCYTES % (AUTO) 22.5 %; MEAN CORPUSCULAR HGB CONC 34.6 g/dL (32.0-36.0); MEAN CORPUSCULAR VOLUME 92.6 fL (81.0-99.0); MONOCYTES # (AUTO) 0.3 10^3/uL (0.0-1.0); MONOCYTES % (AUTO) 5.8 %; NEUTROPHILS # (AUTO) 3.5 10^3/uL (1.5-6.6); PLT - PLATELET COUNT 240 10^3/uL (130-450); RED BLOOD COUNT 4.03 10^6/uL (4.20-5.40); RED CELL DISTRIBUTION WIDTH 11.7 % (12.0-15.0); WHITE BLOOD COUNT 5.6 x10^3/uL (4.8-10.8)
== END 2020-11-04 10:18 | disposition home or self-care (01) ==
LOC: LAB 10:17
PROVIDERS: ATTEND Obstetrics & Gynecology
DX: O09.90 Supervision of high risk pregnancy, unspecified, unspecified trimester (principal); Z36.89 Encounter for other specified antenatal screening
CPT/HCPCS: 36415; 82950; 85025; 86850

== ENCOUNTER 2020-12-30 08:00 | Outpatient (CLI) | payer OTHER, BC | END 2020-12-30 23:59 | disposition home or self-care (01) | LOC: LAB.R 08:00 | PROVIDERS: ATTEND Obstetrics & Gynecology | DX: Z36.85 Encounter for antenatal screening for Streptococcus B (principal) | CPT/HCPCS: 87797 ==

== ENCOUNTER 2021-01-05 10:00 | Outpatient (CLI) | payer OTHER, BC ==
[2021-01-05] MEDS ORDERED: BETAMETHASONE 30 MG/5 ML VIAL IM ONE (10:06)
[2021-01-05 10:24] VITALS: BP 116/83
== END 2021-01-05 10:29 | disposition home or self-care (01) ==
LOC: WFO 10:00 → FBP 10:01 → WFO 10:29
PROVIDERS: ATTEND Obstetrics & Gynecology
DX: O26.90 Pregnancy related conditions, unspecified, unspecified trimester (principal); Z3A.00 Weeks of gestation of pregnancy not specified
CPT/HCPCS: 96372

== ENCOUNTER 2021-01-09 13:58 | Outpatient (CLI) | payer OTHER, BC ==
[2021-01-09 14:30] LABS: BASOPHILS % (AUTO) 0.5 %; EOSINOPHILS # (AUTO) 0.1 10^3/uL (0.0-0.7); EOSINOPHILS % (AUTO) 1.8 %; HCT - HEMATOCRIT 36.2 % (37.0-47.0); HGB - HEMOGLOBIN 12.6 g/dL (12.0-16.0); LYMPHOCYTES # (AUTO) 1.3 10^3/uL (1.5-3.5); LYMPHOCYTES % (AUTO) 21.4 %; MEAN CORPUSCULAR HEMOGLOBIN 30.1 pg (27.0-31.0); MEAN CORPUSCULAR HGB CONC 34.8 g/dL (32.0-36.0); MEAN CORPUSCULAR VOLUME 86.4 fL (81.0-99.0); MEAN PLATELET VOLUME 9.5 fL (7.9-10.8); MONOCYTES # (AUTO) 0.4 10^3/uL (0.0-1.0); MONOCYTES % (AUTO) 7.4 %; NEUTROPHILS # (AUTO) 4.1 10^3/uL (1.5-6.6); NEUTROPHILS % (AUTO) 67.9 %; PLT - PLATELET COUNT 237 10^3/uL (130-450); RED BLOOD COUNT 4.19 10^6/uL (4.20-5.40); RED CELL DISTRIBUTION WIDTH 11.9 % (12.0-15.0)
== END 2021-01-09 13:59 | disposition home or self-care (01) ==
LOC: LAB 13:58
PROVIDERS: ATTEND Obstetrics & Gynecology
DX: Z01.812 Encounter for preprocedural laboratory examination (principal); O34.211 Maternal care for low transverse scar from previous cesarean delivery; Z20.822 Contact with and (suspected) exposure to COVID-19
CPT/HCPCS: 36415; 85025; 86850; 86870; 86880; 86900; 86901; 86920; 86922

== ENCOUNTER 2021-01-12 06:18 | Inpatient (IN) | payer OTHER, BC ==
[2021-01-12] MEDS ORDERED: MORPHINE PF 5 MG/10 ML VIAL ONE (07:04)
[2021-01-12] MEDS ORDERED: fentaNYL 100 MCG/2 ML VIAL ONE (07:04)
--- NOTE | 2021-01-12 07:04 | ANESTHESIA ---
Pre-Anesthesia VS, & Labs - Diagnosis previous c/s - Procedure repeat c/s with bilateral tubal ligation Vital Signs: Temp Pulse Resp BP Pulse Ox 36.7 C 97 18 135/76 H 01/12/21 06:54 01/12/21 06:54 01/12/21 06:54 01/12/21 06:54 Height: 5 ft 7 in Weight (kg): 89.811 kg Body Mass Index: 31.0 BMI Classification: Obese - NPO >8 hours - Is Patient ?: Yes - Lab Results Lab results reviewed: Yes Home Medications and Allergies PNV Allergies/Adverse Reactions: Allergies Allergy/AdvReac Type Severity Reaction Status Date / Time bupropion HCl * Allergy Unknown Verified 09/01/20 20:29 [From Wellbutrin] oxycodone Allergy Rash Verified 09/01/20 20:29 Anes History & Medical History - Anesthetic History Anesthesia Complications: reports: No previous complications - Medical History Cardiovascular: reports: None Pulmonary: reports: None Gastrointestinal: reports: None Urinary: reports: None Neuro: reports: None Musculoskeletal: reports: None Endocrine/Autoimmune: reports: None Blood Disorders: reports: None Skin: reports: None Smoking Status: Former smoker (quit 2016) Psychosocial: reports: Depression, Anxiety History of Cancer?: No - Surgical History General: reports: Cholecystectomy Gynecologic: reports: section - Obstetrical History : 2 Parity: 1 Events: positive: None Complications: positive: None Exam General: Alert, Oriented x3, Cooperative, No acute distress Dental: WNL, Other (bonded retainers) Mouth Openin Fingerbreadth Neck Mobility: Normal Mallampati classification: II Thyromental Distance: 4-6 cm Respiratory: Lungs clear, Normal breath sounds, No respiratory distress, No accessory muscle use Cardiovascular: Regular rate, Normal S1, Normal S2, No murmurs Mental/Cognitive Status: Alert/Oriented X3, Normal for patient Plan Anesthesia Type: Spinal Consent for Procedure(s) Verified and Reviewed: Yes Code Status: Attempt Resuscitation ASA classification: 2-Mild systemic disease Is this case an emergency?: No
[2021-01-12] MEDS ORDERED: SODIUM CHLORIDE 0.9% 10 ML ONE (07:06)
[2021-01-12] MEDS ORDERED: PHENYLEPHRINE 10 MG/ML VIAL ONE (07:06)
[2021-01-12] MEDS ORDERED: ePHEDrine 50 MG/ML VIAL IVP ONE (07:06)
[2021-01-12] MEDS ORDERED: OXYTOCIN 10 UNIT/ML VIAL ONE (07:08)
--- NOTE | 2021-01-12 07:10 | HISTORY & PHYSICAL EXAMINATION ---
HPI - Admitted From Admitted from: OB - History Obtained From Records Reviewed: Old records reviewed - History of Present Illness HPI Comment/Other: Patient is a 30 yo at 37+1 wga with a prior vertical uterine incision here for repeate . Prior delivery complicated by vertical incision on the uterus. Conferred with MFM on management and they recommended delivery at 37 wga. Patient presents for scheduled repeat and BTL. history as below: Sent to triage for BMZ given plan for early delivery at 36+1 Datin02/01/21 by 6w US off 10d from LMP WHIDBEY Rh NEGATIVE / rubella imm Genetic: ultimately decided not to do Carrier: declined Anatomy: posterior, 54% EFW, 3.2 cm CL, 3VC Gluc: 113 RHOGAM: complete Tdap: complete Flu: given Breast pump: Rx given HSV: neg GBS gc/ct: neg MOD: Repeat 37-38w. Scheduled for 01/13/2020 Pap: 06/27/18 Contraception: Desires BTL. Signed [facility] consents 11/24/2019 PROBLEMS --Prior "low vertical" : repeat at 37w --Had LSC cholecystectomy in 2nd trimester --Conceived while using IUD, IUD removed in 1st trimester Consents obtained at prior visit. No change in health hx since timeof prior exam. No VB/LOF/CTX. Endorses FM> PMH/PSH - Past Medical History Cardiovascular: positive: None Respiratory: positive: None Neuro: positive: None Endocrine/Autoimmune: positive: None GI: positive: None : positive: None HEENT: positive: None Psych: positive: None, Depression, Anxiety, Panic attacks Musculoskeletal: positive: None Derm: positive: None MRSA Hx?: No - Past Surgical History General: positive: Cholecystectomy /TOUCHER UP: positive: section Social & Family Hx - Social History Does the pt smoke?: No Smoking Status: Former smoker (quit 2016) Does the pt drink ETOH?: No Does the pt have substance abuse?: Yes - POLST Patient has POLST: No Meds/Allgy - Home Medications Home Medications: Ambulatory Orders Medication Instructions Recorded Confirmed Ondansetron Odt [Zofran Odt] 4 mg TL Q6H PRN #10 tablet 09/15/20 traMADol [Ultram] 100 mg PO Q6H PRN #20 tablet 09/15/20 - Allergies Allergies/Adverse Reactions: Allergies Allergy/AdvReac Type Severity Reaction Status Date / Time bupropion HCl * Allergy Unknown Verified 09/01/20 20:29 [From Wellbutrin] oxycodone Allergy Rash Verified 09/01/20 20:29 Review of Systems - Other Findings Other Findings: As per HPI, otherwise remaining systems are negative. Exam - Vital Signs Reviewed Vital Signs: Yes Vital Signs: Vital Signs x48h Temp Pulse Resp BP 01/12/21 06:54 98.1 F 97 18 135/76 H - Physical Exam General Appearance: positive: No acute distress Neck: positive: Nml inspection Respiratory: positive: No respiratory distress Cardiovascular: positive: Regular rate & rhythm Abdomen: positive: Non-tender, Other (gravid&NT/ND) Skin: positive: Color nml, No rash, Warm Extremities: positive: Non-tender Comments/Other: ABD: Gravid, S&NT/ND EFM: 140 mod chastity 15x15 accels no decels TOCO: quiet Impression/Plan - Problem List Problem List: 30 yo at 37+1 here for scheduled repeat CS and BTL No change in health hx Confirms desires for BTL Cat I tracing Reviewed risks/benefits/alternatives to and BTL Risks include, but are not limited to, bleeding, infection, damage to neatby tissue and organs. On average, EBL of up to 1 liter is considered within normal limits for CS. Risks of blood transfusion include infection Risk of HIV 1/2million nationwide Risk of Hepatitis 1/1 million Risks of transfusion reaction Infection risk moderate given clean/contaminated nature of procedure and IV antibiotics will be given. Damage to nearby tissue and organs including bladder, bowel, ureters, blood vessels, nerves, and fetus Damage may be noted intra-op and may be delayed until after the procedure is complete Reviewed management of complications and efforts to avoid such outcomes but reviewed that they may occur despite our best efforts Confirmed that sterlization is desired Patient understands that tubal ligation is an irreversible process that will result in future infertility Written informed consent obtained. Orders: [id number] - SUBSEQUENT VISIT ([id number])
[2021-01-12] MEDS ORDERED: HYDROmorphone 0.5 MG/0.5 ML SYRINGE IVP PRN (07:11)
[2021-01-12] MEDS ORDERED: ePHEDrine 50 MG/ML VIAL IVP PRN ×4 (07:11→12:23)
[2021-01-12] MEDS ORDERED: ONDANSETRON 4 MG/2 ML VIAL IVP PRN ×4 (07:11→12:23)
[2021-01-12] MEDS ORDERED: NALOXONE 0.4 MG/ML VIAL IVP PRN ×4 (07:11→12:23)
[2021-01-12] MEDS ORDERED: MORPHINE 2 MG/ML CARPUJECT IVP PRN (07:11)
[2021-01-12] MEDS ORDERED: METOCLOPRAMIDE 10 MG/2 ML VIAL IVP PRN ×4 (07:11→12:23)
[2021-01-12] MEDS ORDERED: ATROPINE ABBOJECT 1 MG/10 ML SYRINGE IVP PRN (07:11)
[2021-01-12] MEDS ORDERED: fentaNYL 100 MCG/2 ML VIAL IVP PRN (07:11)
[2021-01-12] MEDS ORDERED: ACETAMINOPHEN 1,000 MG/100 ML 100 ML IV ONE (07:14)
[2021-01-12] MEDS ORDERED: ceFAZolin 2 GM/50 ML 2 GM/50 ML BAG IV ONE (07:15)
[2021-01-12] MEDS ORDERED: LIDOCAINE 2%-EPI 1:100000 20 ML MDV ONE (07:33)
[2021-01-12] MEDS ORDERED: BUPIVACAINE 0.5% PF 30 ML VIAL ONE (07:33)
[2021-01-12] MEDS ORDERED: MORPHINE PF 5 MG/10 ML VIAL IT ONE (07:58)
[2021-01-12] MEDS ORDERED: fentaNYL 100 MCG/2 ML VIAL IT ONE (07:58)
[2021-01-12] MEDS ORDERED: LACTATED RINGERS 1,000 ML IV SCH ×3 (08:00→11:00)
[2021-01-12] MEDS ORDERED: NALBUPHINE 10 MG/ML AMP IVP PRN ×2 (08:12→12:22)
[2021-01-12] MEDS ORDERED: diphenhydrAMINE INJ 50 MG/ML VIAL IVP PRN ×2 (08:12→12:23)
[2021-01-12] MEDS ORDERED: BUPIVACAINE 0.5% PF 30 ML VIAL SUBQ ONE (08:20)
[2021-01-12] MEDS ORDERED: LIDOCAINE 2%-EPI 1:100000 20 ML MDV SUBQ ONE (08:20)
[2021-01-12] MEDS ORDERED: ONDANSETRON 4 MG/2 ML VIAL ONE (09:26)
[2021-01-12] MEDS ORDERED: LACTATED RINGERS 1,000 ML IV ONE ×2 (10:05→11:16)
[2021-01-12] MEDS ORDERED: ONDANSETRON ODT 4 MG TABLET TL PRN (10:06)
[2021-01-12] MEDS ORDERED: SODIUM CHLORIDE FLUSH 0.9% 10 ML SYRINGE IVP PRN (10:06)
[2021-01-12] MEDS ORDERED: OXYTOCIN/SODIUM CHLORIDE 500 ML IV PRN (10:06)
[2021-01-12] MEDS ORDERED: SIMETHICONE CHEW 80 MG TABLET PO PRN (10:06)
--- NOTE | 2021-01-12 10:09 | OPERATIVE REPORT ---
Operative Report - General Admit Date: 01/12/21 Procedure Date: 01/12/21 Planned Procedure: Repeat and and bilateral salpingectomy Pre-Op Diagnosis: Hx of prior with low vertical incision, IUP at 37+1 wga Procedure Performed: Repeat with low transverse incision Bilateral salpingectomy Post Op Diagnosis: Same and delivery of term gestation - Procedure Note Primary Surgeon: Janeth Rojas MD Secondary Surgeon: LESVIA Vidales CNM Anesthesia Provider: Amadou Vicente CRNA Anesthesia Technique: Spinal Pathology: Bilateral fallopian tubes to pathology Placenta for routine dischard IV Fluids (mL): 1,400 Estimated Blood Loss (mL): 700 Urine Output (mL): 100 Indications: Patient is a 30 yo at 37+1 wga with a history of prior with a low vertical incision. Conferred with [facility] and they recommended delivery at 37 wga. Patient desires sterilization and this was confirmed preoperatively and intraoperatively. Findings: Fetus is vertex presentation. Bladder adherent to the vertical incision at the midline of the uterus. Normal appearing uterus, tubes, and ovaries. Complications: None - Other Other Information/Narrative: Risks benefits and alternatives of the procedure were discussed. Written informed consent was obtained. Patient was taken to the operating room where spinal anesthesia was placed and found to be adequate. She was prepped and draped in the usual sterile fashion in the dorsal supine position with a leftward tilt. Archibald catheter was in place. SCDs were in place and activated. Cefazolin 2 g IV was given as a preoperative antibiotic. Preoperative timeout was performed. A total of 20 cc of 1% lidocaine with epinephrine and 0.25% bupivicaine was injected into the suture line prior to making the incision. A Pfannenstiel incision was made in the skin with a scalpel and carried through the underlying layer of fascia in a combination of sharp and blunt dissection with occasional cautery. The fascia was incised in the midline, and the incision was extended laterally with the Snow scissors. The superior aspect of the fascial incision was grasped with the Buddy clamps, elevated, and the underlying rectus muscles were dissected off bluntly and sharply using the Snow scissors. Attention was then turned to the inferior aspect of the incision which in a similar fashion was grasped, tented up with Buddy clamps, and the underlying rectus muscles dissected off bluntly and sharply using Snow scissors. The rectus muscles were then in the midline. The peritoneum was identified, tented up, and entered bluntly. The peritoneal incision was extended superiorly and inferiorly with good visualization of the bladder. The bladder that blade was then inserted. Bladder adhesions fixed to the midline of the uterus were released, essentially creating a bladder flap. The lower uterine segment of the uterus was identified, and incised in a transverse fashion with a scalpel. The uterus was entered bluntly. The uterine incision was extended in a craniocaudal fashion by manual stretch. The bladder blade was removed. The infant was delivered from from vertex position with vacuum assistance using the Kiwi rigid cup vacuum. Baby was wrapped in a warm sterile towel. Delayed cord clamping was not performed. The cord was clamped x2 and cut. The infant was handed off to the waiting pediatricians. The placenta was removed with manual expression. The uterus was exteriorized and cleared of all clots clots and debris via manual swipe using Ray-Altierre x2. The uterine incision was then repaired in a running locked fashion using 0 Vicryl suture. The incision was reinforced with a running imbricating layer again using 0-Vicryl suture. Excellent hemostasis was obtained. Attention was then turned to the salpingectomy portion of the procedure. The left Fallopian tube was grasped with Crockett clamps and elevated. It was resected from the underlying mesosalpinx with the LigaSure bipolar sealing and cutting device until the insertion point at the uterine cornua was met. At that point, the fallopian tube was sealed and transected at ints insertion point into the uterine cornua. The tube was removed from the field. This process was repeated on the right side. Both tubes were sent in a single specimen to Pathology. The uterus was returned to the abdomen. The gutters were cleared of all clots and debris. The pelvis was irrigated with warm normal saline. The uterine defect was well visualized in normal anatomic position it was noted again to be hemostatic. The peritoneum was then reapproximated with 2-0 Vicryl in a running fashion. The rectus muscles were then reapproximated using interrupted [id number] sutures using 2-0 Chromic. Good hemostasis was noted. The fascia was then closed using 0 Vicryl in a running fashion starting from the left lateral edge to the midline. A second suture was used to close the fascia in a running fashion starting from the right lateral edge and meeting in the midline, agian using 0-Vicryl. The subcutaneous tissue was then irrigated and closed using 2-0 chromic in a running subcutaneous suture. Skin was closed in a running subcuticular suture using 4-0 Monocryl. Steri-Strips were applied to reinforce the incision and dressing was applied. Procedure was well-tolerated and without complication. Sponge lap and needle counts were correct x2. Patient was taken to recovery room in stable condition. ALETHA Vidales, assisted with retraction, delivery of the , and suturing.
[2021-01-12] MEDS: KETOROLAC 30 MG/ML VIAL IVP SCH ×2 (11:53→18:36)
[2021-01-12] MEDS: DOCUSATE SODIUM 100 MG CAPSULE PO SCH (11:53)
--- NOTE | 2021-01-12 14:15 | ANESTHESIA POST OP EVALUATION ---
Anesthesia Post Eval - Post Anesthesia Eval Vitals: Last Vital Signs Temp 36.4 C L 01/12/21 14:05 Pulse 74 01/12/21 14:05 Resp 18 01/12/21 14:05 BP 102/59 L 01/12/21 14:05 Pulse Ox 100 01/12/21 14:05 CV Function Including HR & BP: positive: Stable Pain Control: positive: Satisfactory Nausea & Vomiting: positive: Negative Mental Status: positive: Baseline Respiratory Status: Airway Patent Hydration Status: Satisfactory Anesthesia Complications: positive: None
[2021-01-12] MEDS: ACETAMINOPHEN 500 MG TABLET PO SCH ×2 (16:40→19:17)
[2021-01-12] MEDS ORDERED: SODIUM CHLORIDE FLUSH 0.9% 10 ML SYRINGE IVP SCH (17:00)
[2021-01-13] MEDS: ACETAMINOPHEN 500 MG TABLET PO SCH ×3 (00:13→17:11)
[2021-01-13] MEDS: KETOROLAC 30 MG/ML VIAL IVP SCH ×2 (00:13→06:30)
[2021-01-13] MEDS: DOCUSATE SODIUM 100 MG CAPSULE PO SCH ×3 (00:13→19:59)
[2021-01-13 05:56] LABS: BASOPHILS % (AUTO) 0.5 %; EOSINOPHILS # (AUTO) 0.1 10^3/uL (0.0-0.7); EOSINOPHILS % (AUTO) 1.6 %; HCT - HEMATOCRIT 33.5 % (37.0-47.0); HGB - HEMOGLOBIN 11.1 g/dL (12.0-16.0); LYMPHOCYTES # (AUTO) 1.2 10^3/uL (1.5-3.5); LYMPHOCYTES % (AUTO) 13.8 %; MEAN CORPUSCULAR HEMOGLOBIN 29.4 pg (27.0-31.0); MEAN CORPUSCULAR HGB CONC 33.1 g/dL (32.0-36.0); MEAN CORPUSCULAR VOLUME 88.6 fL (81.0-99.0); MEAN PLATELET VOLUME 9.6 fL (7.9-10.8); MONOCYTES # (AUTO) 0.7 10^3/uL (0.0-1.0); MONOCYTES % (AUTO) 8.4 %; NEUTROPHILS # (AUTO) 6.6 10^3/uL (1.5-6.6); NEUTROPHILS % (AUTO) 75.2 %; PLT - PLATELET COUNT 186 10^3/uL (130-450); RED BLOOD COUNT 3.78 10^6/uL (4.20-5.40); RED CELL DISTRIBUTION WIDTH 12.2 % (12.0-15.0); WHITE BLOOD COUNT 8.8 x10^3/uL (4.8-10.8)
[2021-01-13] MEDS: IBUPROFEN 600 MG TABLET PO SCH ×2 (15:57→22:09)
--- NOTE | 2021-01-13 17:17 | PROVIDER PROGRESS NOTE ---
Subjective - Prog Note Date Prog Note Date: 01/13/21 Prog Note Time: 09:00 - Subjective Subjective: Patient had Archibald catheter removed overnight. Has voided. Has beenup and out of bed with minimal/limited ambulation. Pain well managed, rated 3/10 at its peak. Bleeding minimal. BF going well. No concerns. Objective - Vital Signs/Intake & Output Reviewed Vital Signs: Yes Vital Signs: Vital Signs x48h Temp Pulse Resp BP Pulse Ox 01/13/21 15:49 98.4 F 90 18 115/65 100 Intake & Output: Intake & Output 01/10/21 01/11/21 01/12/21 01/13/21 23:59 23:59 23:59 23:59 Intake Total 500 400 Output Total 800 1150 Balance -300 -750 - Objective General Appearance: positive: No acute distress Respiratory: positive: Chest non-tender, No respiratory distress, Breath sounds nml Cardiovascular: positive: Regular rate & rhythm Abdomen: positive: Other (FF below umbi. S& appropriately tender. ND. FF below umbi) Back: positive: Nml inspection Skin: positive: Color nml Extremities: positive: Non-tender, No pedal edema Neurologic/Psychiatric: positive: Oriented x3 Comments/Other: Dressing CDI - Lab Results Fish Bones: 01/13/21 05:39 Other Labs: Lab Results x24hrs 01/13/21 Range/Units 05:39 WBC 8.8 (4.8-10.8) x10^3/uL RBC 3.78 L (4.20-5.40) 10^6/uL Hgb 11.1 L (12.0-16.0) g/dL Hct 33.5 L (37.0-47.0) % MCV 88.6 (81.0-99.0) fL MCH 29.4 (27.0-31.0) pg MCHC 33.1 (32.0-36.0) g/dL RDW 12.2 (12.0-15.0) % Plt Count 186 (130-450) 10^3/uL MPV 9.6 (7.9-10.8) fL Neut # (Auto) 6.6 (1.5-6.6) 10^3/uL Lymph # (Auto) 1.2 L (1.5-3.5) 10^3/uL Terrell # (Auto) 0.7 (0.0-1.0) 10^3/uL Eos # (Auto) 0.1 (0.0-0.7) 10^3/uL Baso # (Auto) 0.0 (0.0-0.1) 10^3/uL Absolute Nucleated RBC 0.00 x10^3/uL Nucleated RBC % 0.0 /100WBC Assessment/Plan - Problem List (1) deliv NOS-unsp Impression: POD#1: Doing well post op -Encourage ambulation -Transition to po pain meds -Anticipate DC home in am
[2021-01-13] MEDS ORDERED: HYDROmorphone 2 MG TABLET PO PRN (17:30)
[2021-01-13] MEDS ORDERED: diphenhydrAMINE INJ 50 MG/ML VIAL IVP PRN (17:31)
[2021-01-13] MEDS ORDERED: diphenhydrAMINE 25 MG CAPSULE PO PRN (17:31)
[2021-01-13] MEDS ORDERED: EPINEPHrine ABBOJECT 1 MG/10 ML SYRINGE IM PRN (17:35)
--- NOTE | 2021-01-13 17:35 | PROVIDER PROGRESS NOTE ---
Subjective - Prog Note Date Prog Note Date: 01/13/21 Prog Note Time: 17:33 - Subjective Subjective: Pain is poorly managed with ibuprofen and tylenol. Requesting additional medications. Tearful 2/2 pain and pain is limiting activity. has rash in reaction to oxycodone. Willing to tolerate rash for pain relief. has not had dilaudid. Will trial dilaudid and have benadryl po and IV readily available. Objective - Vital Signs/Intake & Output Vital Signs: Vital Signs x48h Temp Pulse Resp BP Pulse Ox 01/13/21 15:49 98.4 F 90 18 115/65 100 Intake & Output: Intake & Output 01/10/21 01/11/21 01/12/21 01/13/21 23:59 23:59 23:59 23:59 Intake Total 500 400 Output Total 800 1800 Balance -300 -1400 - Lab Results Fish Bones: 01/13/21 05:39 Other Labs: Lab Results x24hrs 01/13/21 Range/Units 05:39 WBC 8.8 (4.8-10.8) x10^3/uL RBC 3.78 L (4.20-5.40) 10^6/uL Hgb 11.1 L (12.0-16.0) g/dL Hct 33.5 L (37.0-47.0) % MCV 88.6 (81.0-99.0) fL MCH 29.4 (27.0-31.0) pg MCHC 33.1 (32.0-36.0) g/dL RDW 12.2 (12.0-15.0) % Plt Count 186 (130-450) 10^3/uL MPV 9.6 (7.9-10.8) fL Neut # (Auto) 6.6 (1.5-6.6) 10^3/uL Lymph # (Auto) 1.2 L (1.5-3.5) 10^3/uL Christian # (Auto) 0.7 (0.0-1.0) 10^3/uL Eos # (Auto) 0.1 (0.0-0.7) 10^3/uL Baso # (Auto) 0.0 (0.0-0.1) 10^3/uL Absolute Nucleated RBC 0.00 x10^3/uL Nucleated RBC % 0.0 /100WBC
[2021-01-14] MEDS: ACETAMINOPHEN 500 MG TABLET PO SCH (01:30)
[2021-01-14] MEDS: IBUPROFEN 600 MG TABLET PO SCH (06:50)
[2021-01-14 07:52] VITALS: BP 126/84
--- NOTE | 2021-01-14 08:52 | DISCHARGE SUMMARY ---
Discharge Summary Admit Date: 01/12/21 Discharge Date: 01/14/21 Condition at Discharge: Good Discharge Disposition: Home, Self Care - DIAGNOSES Admission Diagnoses: IUP at 37+1 wga Hx of prior with vertical uterine incision Desires sterilization Discharge Diagnoses with Status of Each Condition: Same and delivery of term gestation and completion of tubal sterilization - HPI History of Present Illness: Patient is a 30 yo at 37+1 wga with a prior vertical uterine incision here for repeate . Prior delivery complicated by vertical incision on the uterus. Conferred with MFM on management and they recommended delivery at 37 wga. Patient presents for scheduled repeat and BTL. history as below: BMZ given plan for early delivery at 36+1 Datin02/01/21 by 6w US off 10d from [facility] Rh NEGATIVE / rubella imm Genetic: ultimately decided not to do Carrier: declined Anatomy: posterior, 54% EFW, 3.2 cm CL, 3VC Gluc: 113 RHOGAM: complete Tdap: complete Flu: given Breast pump: Rx given HSV: neg GBS gc/ct: neg MOD: Repeat 37-38w. Scheduled for 01/13/2020 Pap: 06/27/18 Contraception: Desires BTL. Signed [facility] consents 11/24/2019 PROBLEMS --Prior "low vertical" : repeat at 37w --Had LSC cholecystectomy in 2nd trimester --Conceived while using IUD, IUD removed in 1st trimester Consents obtained at prior OB visit. . - CONSULTS | PROCEDURES Procedures: Low transverse and bilateral salpingectomy - HOSPITAL COURSE Hospital Course: Patient was admitted for the aforementioned procedure. and bilateral salpingectomy performed without complicated. Procedure was well tolerated. Postoperative course was uncomplicated. Patient was able to tolerate dilaudid without concern for allergic reaction. Met goals for discharge by POD#2. Routine discharge instructions given. Rh NEGATIVE / rubella imm Infant also Rh negative. - ALLERGIES Allergies/Adverse Reactions: Allergies Allergy/AdvReac Type Severity Reaction Status Date / Time bupropion HCl * Allergy Unknown Verified 09/01/20 20:29 [From Wellbutrin] oxycodone Allergy Rash Verified 09/01/20 20:29 - MEDICATIONS Home Medications: Ambulatory Orders Medication Instructions Recorded Confirmed Ondansetron Odt [Zofran Odt] 4 mg TL Q6H PRN #10 tablet 09/15/20 traMADol [Ultram] 100 mg PO Q6H PRN #20 tablet 09/15/20 Acetaminophen [Acetaminophen Extra 1,000 mg PO Q8H PRN #60 tablet 01/13/21 Strength] Docusate Sodium 100Mg Capsule 100 - 200 mg PO BID PRN #60 cap 01/13/21 [Colace 100Mg Capsule] HYDROmorphone [Dilaudid] 2 mg PO Q4H PRN #24 tablet 01/13/21 Ibuprofen [Motrin] 600 mg PO Q6H PRN #60 tab 01/13/21 - PHYSICAL EXAM AT DISCHARGE General Appearance: positive: No acute distress Respiratory: positive: No respiratory distress, Breath sounds nml Cardiovascular: positive: Regular rate & rhythm Peripheral Pulses: positive: 2+ Abdomen: positive: Other (S&NT/ND. FF below umbi. Dressing removed from incision. Suture line CDI with steristrips in place. ) Skin: positive: Color nml, Warm, Dry Extremities: positive: Non-tender, No pedal edema Neurologic/Psychiatric: positive: Oriented x3 - LABS Result Diagrams: 01/13/21 05:39 - FOLLOW UP Follow Up: [address] Rojas - TIME SPENT Time Spent in Discharge (Minutes): 30
--- NOTE | 2021-01-14 08:54 | Discharge Plan ---
Discharge Plan Problem Reviewed?: Yes Disposition: Home, Self Care Condition: Good Prescriptions: Acetaminophen [Acetaminophen Extra Strength] 1,000 mg PO Q8H PRN #60 tablet PRN Reason: Pain Docusate Sodium 100Mg Capsule [Colace 100Mg Capsule] 100 - 200 mg PO BID PRN #60 cap PRN Reason: Constipation HYDROmorphone [Dilaudid] 2 mg PO Q4H PRN #24 tablet PRN Reason: Severe Pain Ibuprofen [Motrin] 600 mg PO Q6H PRN #60 tab PRN Reason: Pain Diet: Regular Shower Restrictions: No (No tubs baths or hot tubs for 4 weeks) Driving Restrictions: Yes (No driving on narcotics) Health Concerns: Nothing in the vagina for 6 weeks: No intercourse, tampons, douching Call for: -Fever greater than 100.5 -Pain that does not improve with pain medication -Heavy bleeding in which you are soaking a pad an hour for 2 hours in a row -Incision becomes hot, hard, red, starts to open, or leaks foul smelling fluid No lifting more than 10# for 4 weeks No [address] while on narcotics Ok to shower. Let water run over the incision. Do not soap, scrub, or apply lotion. Pat dry with a clean towel or arnaldo a dehairer. The surgical stickers will start to peel off and you can remove them when they do. Otherwise, the provider will remove them at your one week follow-up appointment. OK to use an unscented sanitary napkin or clean washcloth to keep the incision dry if the belly folds over the incision. Ibuprofen 600 mg by mouth every 6 hours as needed for pain Acetaminophen 500-1000 mg by mouth every 8 hours as needed for pain Docusate 100-200 mg by mouth twice a day as needed for constipation Dilaudid 2 mg by mouth every 4 hours as needed for pain No Smoking: If you smoke, Please STOP! Call for help. Follow-up with: Adelaide Rojas MD [Provider Admit Priv/Credential] -
--- NOTE | 2021-01-14 12:11 | PROVIDER PROGRESS NOTE ---
Subjective - Prog Note Date Prog Note Date: 01/14/21 Prog Note Time: 08:00 - Subjective Subjective: Pain well managed with addition of oral dilaudid. Did not have rash/allergic reaction. Has been up and ambulating. Tolerating po. Voiding. BF going well. Objective - Vital Signs/Intake & Output Reviewed Vital Signs: Yes Vital Signs: Vital Signs x48h Temp Pulse Resp BP Pulse Ox 01/14/21 07:49 97.7 F 83 18 126/84 H 100 Intake & Output: Intake & Output 01/11/21 01/12/21 01/13/21 01/14/21 23:59 23:59 23:59 23:59 Intake Total 500 400 Output Total 800 1800 Balance -300 -1400 - Objective General Appearance: positive: No acute distress, Alert Neck: positive: Nml inspection Respiratory: positive: No respiratory distress Cardiovascular: positive: Other (RR) Abdomen: positive: Other (&NT/ND. Dressing CDI. Removed and incision line CDI with steristrips in place.) Skin: positive: Color nml, No rash, Warm, Dry Extremities: positive: Non-tender, No pedal edema Neurologic/Psychiatric: positive: Oriented x3 - Lab Results Fish Bones: 01/13/21 05:39 Assessment/Plan - Problem List (1) deliv NOS-unsp Impression: POD#@: Doing well Pain well managed with addition of dilaudid. Patient minimizing use of narcotics in general Patient is Rh neg; infant also Rh negative Meeting goals for discharge DC to home with routine instructions
--- NOTE | 2021-01-14 14:06 | Labor Flowsheet ---
Labor Flowsheet Datetime Report Generated by CPN: 01/14/2021 14:06 Datetime: 01/12/2021 15:44 VAGINAL EXAM Membranes Ruptured Date/Time: 01/12/2021 08:35 Membranes Rupture Method: Artificial Datetime: 01/12/2021 07:37 VITAL SIGNS NBP Sys/Kassidy/Mean (mmHg): 120 : 83 : 90 Pulse: 91
== END 2021-01-14 13:20 | disposition home or self-care (01) | DRG 785 ==
LOC: FBP 06:18
PROVIDERS: ADMIT Obstetrics & Gynecology; ATTEND Obstetrics & Gynecology
PROC: 0U570ZZ Destruction of Bilateral Fallopian Tubes, Open Approach (ICD-10-PCS; 2021-01-12)
PROC: 10D00Z1 Extraction of Products of Conception, Low, Open Approach (ICD-10-PCS; principal; 2021-01-12 07:30)
DX: O34.212 Maternal care for vertical scar from previous cesarean delivery (principal); Z37.0 Single live birth; O99.892 Other specified diseases and conditions complicating childbirth; N73.6 Female pelvic peritoneal adhesions (postinfective); Z3A.37 37 weeks gestation of pregnancy; Z87.891 Personal history of nicotine dependence; Z30.2 Encounter for sterilization; Z90.49 Acquired absence of other specified parts of digestive tract
CPT/HCPCS: 36415; 85025; A9270; J0131; J0690; J2274; J7120; 86850; 86900; 86901; 86920

== ENCOUNTER 2022-04-13 15:49 | Outpatient (CLI) | payer OTHER ==
[2022-04-13 17:47] LABS: BASOPHILS # (AUTO) 0.1 10^3/uL (0.0-0.1); BASOPHILS % (AUTO) 1.2 %; EOSINOPHILS # (AUTO) 0.5 10^3/uL (0.0-0.7); EOSINOPHILS % (AUTO) 7.1 %; HCT - HEMATOCRIT 42.7 % (37.0-47.0); HGB - HEMOGLOBIN 14.6 g/dL (12.0-16.0); LYMPHOCYTES % (AUTO) 26.5 %; MEAN CORPUSCULAR HEMOGLOBIN 30.3 pg (27.0-31.0); MEAN CORPUSCULAR HGB CONC 34.2 g/dL (32.0-36.0); MEAN CORPUSCULAR VOLUME 88.6 fL (81.0-99.0); MEAN PLATELET VOLUME 10.3 fL (7.9-10.8); MONOCYTES # (AUTO) 0.5 10^3/uL (0.0-1.0); MONOCYTES % (AUTO) 6.7 %; NEUTROPHILS # (AUTO) 4.3 10^3/uL (1.5-6.6); NEUTROPHILS % (AUTO) 58.4 %; PLT - PLATELET COUNT 279 10^3/uL (130-450); RED BLOOD COUNT 4.82 10^6/uL (4.20-5.40); RED CELL DISTRIBUTION WIDTH 12.1 % (12.0-15.0); WHITE BLOOD COUNT 7.4 x10^3/uL (4.8-10.8)
[2022-04-13 18:08] LABS: ALBUMIN 4.3 g/dL (3.2-5.5); ALBUMIN/GLOBULIN RATIO 1.3 (1.0-2.2); ALKALINE PHOSPHATASE 43 IU/L (42-121); ALT ALANINE AMINOTRANSFERASE 30 IU/L (10-60); AST ASPARTATE AMINOTRANSFERASE 18 IU/L (10-42); BILIRUBIN,TOTAL 0.6 mg/dL (0.2-1.0); BUN - BLOOD UREA NITROGEN 16 mg/dL (6-20); CALCIUM 9.6 mg/dL (8.5-10.3); CARBON DIOXIDE - CO2 25 mmol/L (21-32); CHLORIDE 107 mmol/L (101-111); CHOLESTEROL 178 mg/dL; CREATININE 0.7 mg/dL (0.4-1.0); GFR - MDRD 98 (>89); GLUCOSE 93 mg/dL (70-100); HDL CHOLESTEROL 44 mg/dL; LDL CHOLESTEROL,CALCULATED 117 mg/dL; LDL/HDL RATIO 2.7 (<4.4); POTASSIUM 3.9 mmol/L (3.5-5.0); SODIUM 140 mmol/L (135-145); TOTAL PROTEIN 7.7 g/dL (6.7-8.2); TRIGLYCERIDES 86 mg/dL; VLDL CHOLESTEROL 17 mg/dL
[2022-04-13 18:16] LABS: THYROID STIMULATING HORMONE 3.51 uIU/mL (0.34-5.60)
[2022-04-13 21:29] LABS: ESTIMATED AVERAGE GLUCOSE 94 mg/dL (70-100); HEMOGLOBIN A1c% 4.9 % (4.27-6.07)
== END 2022-04-13 15:50 | disposition home or self-care (01) ==
LOC: LAB.N 15:49
PROVIDERS: ATTEND Physician Assistant
DX: E78.5 Hyperlipidemia, unspecified (principal); F41.9 Anxiety disorder, unspecified; F32.A Depression, unspecified; R73.9 Hyperglycemia, unspecified; Z86.2 Personal history of diseases of the blood and blood-forming organs and certain disorders involving the immune mechanism
CPT/HCPCS: 36415; 80053; 80061; 83036; 83721; 84443; 85025